=== PATIENT | female | born 1965 | race Caucasian/White ===

== ENCOUNTER 2020-08-19 15:56 | Emergency (ER) | payer SELFPAY ==
--- NOTE | 2020-08-19 | ECG_ITS ---
Test Reason : CP Blood Pressure : / mmHG Vent. Rate : 087 BPM Atrial Rate : 087 BPM P-R Int : 148 ms QRS Dur : 084 ms QT Int : 378 ms P-R-T Axes : 032 049 054 degrees QTc Int : 454 ms Normal sinus rhythm Normal ECG When compared with ECG of 22-JUL-2019 19:31, No significant change was found Referred By: Generic ED Physician Electronically Signed By:ASHLEY CONTE MD
[2020-08-19 16:19] VITALS: BP 155/85; PULSE 88; RESP 16; TEMP 37.1; O2SAT 99; BMI 24.2
--- NOTE | 2020-08-19 18:00 | XR_ITS ---
EXAMINATION: XR CHEST CLINICAL INFORMATION: Chest pain COMPARISON: Chest x-ray 07/22/2019 TECHNIQUE: Frontal portable view of the chest was obtained. 5:57 PM FINDINGS: No significant abnormality is noted involving the heart, lungs, mediastinum, bony thorax or soft tissues. XR/XR chest 1V IMPRESSION: Unremarkable examination.
[2020-08-19 18:34] VITALS: BP 104/56; PULSE 80; RESP 16; TEMP 36.6; O2SAT 98
[2020-08-19] MEDS: Acetaminophen 325 MG TABLET 975 MG PO (18:37)
[2020-08-19 18:38] LABS: MANUAL DIFF FLAG NO
[2020-08-19 18:42] LABS: Basophils Percent Auto 0.4 % (0-2); Eosinophils Absolute Auto 0.1 X10*3/uL (0.0-0.4); Eosinophils Percent Auto 1.6 % (0-4); Hematocrit 37.7 % (37-47); Hemoglobin 12.8 g/dl (12.0-16.0); Imm Gran Abs Auto 0.01 X10*3/uL (0.00-0.03); Imm Gran Pct Auto 0.2 % (0.0-0.4); Lymphocytes Absolute Auto 1.4 X10*3/uL (1.2-4.9); Lymphocytes Percent Auto 24.6 % (20-40); Mean Corpuscular Hemoglobin 30.8 pg (27.0-33.0); Mean Corpuscular Volume 90.6 fL (80-98); Mean Platelet Volume 9.3 fL (9.4-12.3); Monocytes Absolute Auto 0.5 X10*3/uL (0.1-1.2); Monocytes Percent Auto 8.1 % (2-11); Neutrophils Absolute Auto 3.7 X10*3/uL (2.0-8.3); Neutrophils Percent Auto 65.1 % (45-73); Platelet Count 254 X10*3/uL (160-400); Red Blood Count 4.16 X10*6/uL (4.20-5.50); Red Cell Distribution Width 12.6 % (11.0-16.0); White Blood Count 5.7 X10*3/uL (4.8-10.8)
[2020-08-19 18:44] LABS: Glucose Urine UA NEG (NEG); Leukocyte Esterase Urine NEG (NEG); Nitrite Urine NEG (NEG); Specific Gravity - Urine 1.025 (1.005-1.025); Urine Blood NEG (NEG); Urine Ketones NEG (NEG); Urine Protein NEG (NEG-TRACE)
[2020-08-19 18:45] LABS: Appearance Urine CLEAR; Color Urine YELLOW
[2020-08-19 18:49] LABS: INTERNATIONAL NORM RATIO 0.9 (0.9-1.1); Prothrombin Time 11.2 SEC (10.8-13.0)
[2020-08-19 18:53] LABS: D Dimer < 200 NG/ML
--- NOTE | 2020-08-19 18:53 | ED_ITS ---
HPI - General Adult General Chief complaint: General Medical Stated complaint: FLU LIKE SYMPTOMS Time Seen by Provider: 08/19/20 17:50 Source: patient Mode of arrival: ambulatory Limitations: no limitations History of Present Illness HPI narrative: 55yoF c No Sig PMHx presenting to the ED c c/o of Right sided neck pain/swelling ? lump x 3 weeks. She also reports in the last week she also has been having some mid-sternal chest pain. Reports it is better with laying down. Nothing makes the pain worse. Reports she would also like to be tested for COVID although denies any fevers, cough, sob, abd pain, N/V/D or any other symptoms. Related Data Allergies Allergy/AdvReac Type Severity Reaction Status Date / Time Penicillins [PCN] Allergy Unknown HIVES Verified 08/19/20 16:22 Review of Systems Review of Systems: Constitutional : No Fever, No Chills, No Night Sweats, No Fatigue, No Malaise ENT/Mouth : No Hearing loss, No Ear Pain, No Nasal Congestion, No Sinus Pain, No Hoarseness, No sore throat although pain in right side of neck, No Rhinorrhea, No Swallowing Difficulty Eyes: No Eye Pain, No Swelling, No Vision Changes Cardiovascular : + Chest pain, No SOB, no Dyspnea on Exertion, No Orthopnea, No Edema, No extremity swelling, No Palpitations Respiratory : No Cough, No Sputum, No Wheezing, No Dyspnea Gastrointestinal : No Nausea, No Vomiting, No Diarrhea, No abdominal Pain, No Hematochezia, No Melena Genitourinary : No irregular bleeding, No Dysuria, No Urinary Frequency, No Hematuria, No Urinary Incontinence, No Urgency, No Flank Pain, No Urinary Flow Changes, No Hesitancy Musculoskeletal : No joint pain, No Myalgias, No Joint Swelling Skin : No Skin Lesions, No rash Neuro : No Weakness, No Numbness, No Paresthesias, No Loss of Consciousness, No Dizziness, No Headache Psych : No Anxiety/Panic, No Depression, No SI/HI/AH/VH Heme/Lymph: No Bruising, No Bleeding,No Lymphadenopathy Endocrine : No Polyuria, No Polydipsia, No Temperature Intolerance Yes all other systems are reviewed and are negative [facility] Past Medical History Attestation statement: The following information was validated with the patient. Medical History Patient denies significant medical history Social History Social History Alcohol intake: never Smoked in Last 30 Days: No Use of substances other than those prescribed or required for medical reasons: No Advance Directives: No Advance Directives Information Provided: No Physical Exam Vital Signs: Vital Signs: Last Vital Signs Temp 97.7 F 08/19/20 21:08 Pulse 59 08/19/20 21:08 Resp 16 08/19/20 21:08 BP 125/73 08/19/20 21:08 Pulse Ox 98 08/19/20 21:08 Body Mass Index 24.2 vital signs have been reviewed as normal and appeared to be correct. Blood pressure normal. Heart rate normal. Respiration rate normal. Temperature normal. Oxygen saturation normal. Appearance: Alert. Oriented X3. No acute distress. Head: Normal external exam. Normocephalic. Atraumatic. No Reilly signs noted. No raccoon eyes noted Eyes: PERRLA. EOMI. Conjunctiva and sclera normal. Eyelids normal. ENT: Pharynx normal. Uvula midline. Moist mucous membranes. No trismus noted. No drooling noted. No muffled voice noted. Neck: Normal inspection. Neck supple. FROM. No adenopathy. Thyroid Normal. No meningeal signs. No neck mass noted. CVS: Normal heart rate and rhythm. Heart sound normal. No murmurs noted. Pulses normal throughout. Respiratory: No respiratory distress. Painless inspiration. Breath sounds normal. No wheezes/rales/rhonchi noted. Chest nontender. No accessory muscle usage noted or decreased air movement noted. Abdomen: Soft and nontender. Bowel sounds normal in all 4 quadrants. No distention noted. No organomegaly noted. No visible injury noted. Back: Full range of motion noted. Skin: Skin warm and dry. Normal skin color. Normal skin turgor. No rashes/lesions/lacerations noted. Extremities: No lower extremity edema. Extremities exhibit normal range of motion. Extremities nontender. Neuro: Oriented X 3. No motor deficit. No sensory deficit. Reflexes normal. Course Course Course Narrative: 18:30PM - 55yoF c No Sig PMHx presenting to the ED c c/o of Right sided neck pain/swelling ? lump x 3 weeks. She also reports in the last week she also has been having some mid-sternal chest pain. - Concern for Neck/thyroid mass/goiter vs ACS - Plan: Labs, CXR, EKG, CT scan of neck and re-evaluate. Reevaluation(s) Reevaluation #1: - Including D-dimer and TSH level. UA within normal limits no evidence of UTI. COVID/RSV/influenza negative. Chest x-ray obtained within normal limits no acute processes noted. EKG normal sinus rhythm no acute ischemic changes noted. - due to the patient reporting right sided neck swelling/pain/lump for the past [address] scan with contrast obtained to evaluate for possible abscesses or any other acute processes and revealed bilateral nonspecific adenopathy therefore I gave a copy of the results to the patient and she does not have a primary care provider therefore explained to her that she will need to follow-up with Dr. garrison the ENT which I will give her a referral to along with Oncology and that she needs to call them tomorrow and that they will most likely do a biopsy for further evaluation and treatment. Patient understands this does not have any additional complaints or concerns or questions. Time: 21:41 Medical Decision Making Medical Records Medical records reviewed: Yes I reviewed the patient's medical records. Lab Data Lab results reviewed: Yes I reviewed the patient's lab results. Result diagrams: 08/19/20 18:28 08/19/20 18:28 Labs: Lab Results 08/19/20 08/19/20 08/19/20 Range/Units 18:27 18:28 18:28 WBC 5.7 (4.8-10.8) X10*3/uL RBC 4.16 L (4.20-5.50) X10*6/uL Hgb 12.8 (12.0-16.0) g/dl Hct 37.7 (37-47) % MCV 90.6 (80-98) fL MCH 30.8 (27.0-33.0) pg MCHC 34.0 (31.0-35.0) g/dl RDW 12.6 (11.0-16.0) % Plt Count 254 (160-400) X10*3/uL MPV 9.3 L (9.4-12.3) fL Immature Gran % (Auto) 0.2 (0.0-0.4) % Neut % (Auto) 65.1 (45-73) % Lymph % (Auto) 24.6 (20-40) % Hardeman % (Auto) 8.1 (2-11) % Eos % (Auto) 1.6 (0-4) % Baso % (Auto) 0.4 (0-2) % Lymph # (Auto) 1.4 (1.2-4.9) X10*3/uL Hardeman # (Auto) 0.5 (0.1-1.2) X10*3/uL Eos # (Auto) 0.1 (0.0-0.4) X10*3/uL Baso # (Auto) 0.0 (0.0-0.2) X10*3/uL Abs Immat Gran (auto) 0.01 (0.00-0.03) X10*3/uL Absolute Neuts (auto) 3.7 (2.0-8.3) X10*3/uL Absolute Nucleated RBC 0.000 (0.0-0.012) X10*3/uL Nucleated RBC % (auto) 0.0 (0.0-0.2) /100WBC PT (10.8-13.0) SEC INR (0.9-1.1) D-Dimer NG/ML Sodium 140 (135-145) mmol/L Potassium 4.0 (3.3-5.1) mmol/l Chloride 105 (96-108) mmol/L Carbon Dioxide 26 (22-29) mmol/L Anion Gap 13 (12-20) BUN 20 H (9-16) mg/dL Creatinine 0.66 (0.5-1.4) mg/dL Estim Creat Clear Calc 90.1 Estimated GFR > 60 Random Glucose 111 (60-115) mg/dL Calcium 8.6 (8.4-10.2) mg/dL Magnesium 2.0 (1.6-2.6) mg/dL Total Bilirubin 0.3 (0.0-1.0) mg/dL Direct Bilirubin < 0.2 (0.0-0.5) mg/dL AST 26 (5-31) U/L ALT 20 (0-31) U/L Alkaline Phosphatase 64 (39-117) U/L Troponin I High Sens (<3.5-17.0) ng/L Total Protein 6.7 (6.5-8.0) g/dL Albumin 4.1 (3.5-5.0) g/dL TSH 1.61 (0.32-4.0) uIU/mL Urine Color Urine Appearance Urine pH (5.0-8.0) Ur Specific Sanford (1.005-1.025) Urine Protein (NEG-TRACE) MG/DL Urine Glucose (UA) (NEG) MG/DL Urine Ketones (NEG) MG/DL Urine Blood (NEG) Urine Nitrite (NEG) Ur Leukocyte Esterase (NEG) Coronavirus (PCR) (Negative) Influenza Type A (PCR) (Negative) Influenza Type B (PCR) (Negative) RSV RNA Qual (PCR) (Negative) 08/19/20 08/19/20 08/19/20 Range/Units 18:28 18:28 18:29 WBC (4.8-10.8) X10*3/uL RBC (4.20-5.50) X10*6/uL Hgb (12.0-16.0) g/dl Hct (37-47) % MCV (80-98) fL MCH (27.0-33.0) pg MCHC (31.0-35.0) g/dl RDW (11.0-16.0) % Plt Count (160-400) X10*3/uL MPV (9.4-12.3) fL Immature Gran % (Auto) (0.0-0.4) % Neut % (Auto) (45-73) % Lymph % (Auto) (20-40) % Hardeman % (Auto) (2-11) % Eos % (Auto) (0-4) % Baso % (Auto) (0-2) % Lymph # (Auto) (1.2-4.9) X10*3/uL Hardeman # (Auto) (0.1-1.2) X10*3/uL Eos # (Auto) (0.0-0.4) X10*3/uL Baso # (Auto) (0.0-0.2) X10*3/uL Abs Immat Gran (auto) (0.00-0.03) X10*3/uL Absolute Neuts (auto) (2.0-8.3) X10*3/uL Absolute Nucleated RBC (0.0-0.012) X10*3/uL Nucleated RBC % (auto) (0.0-0.2) /100WBC PT 11.2 (10.8-13.0) SEC INR 0.9 (0.9-1.1) D-Dimer < 200 NG/ML Sodium (135-145) mmol/L Potassium (3.3-5.1) mmol/l Chloride (96-108) mmol/L Carbon Dioxide (22-29) mmol/L Anion Gap (12-20) BUN (9-16) mg/dL Creatinine (0.5-1.4) mg/dL Estim Creat Clear Calc Estimated GFR Random Glucose (60-115) mg/dL Calcium (8.4-10.2) mg/dL Magnesium (1.6-2.6) mg/dL Total Bilirubin (0.0-1.0) mg/dL Direct Bilirubin (0.0-0.5) mg/dL AST (5-31) U/L ALT (0-31) U/L Alkaline Phosphatase (39-117) U/L Troponin I High Sens < 3.5 (<3.5-17.0) ng/L Total Protein (6.5-8.0) g/dL Albumin (3.5-5.0) g/dL TSH (0.32-4.0) uIU/mL Urine Color Urine Appearance Urine pH (5.0-8.0) Ur Specific Sanford (1.005-1.025) Urine Protein (NEG-TRACE) MG/DL Urine Glucose (UA) (NEG) MG/DL Urine Ketones (NEG) MG/DL Urine Blood (NEG) Urine Nitrite (NEG) Ur Leukocyte Esterase (NEG) Coronavirus (PCR) NEGATIVE (Negative) Influenza Type A (PCR) NEGATIVE (Negative) Influenza Type B (PCR) NEGATIVE (Negative) RSV RNA Qual (PCR) NEGATIVE (Negative) 08/19/20 Range/Units 18:37 WBC (4.8-10.8) X10*3/uL RBC (4.20-5.50) X10*6/uL Hgb (12.0-16.0) g/dl Hct (37-47) % MCV (80-98) fL MCH (27.0-33.0) pg MCHC (31.0-35.0) g/dl RDW (11.0-16.0) % Plt Count (160-400) X10*3/uL MPV (9.4-12.3) fL Immature Gran % (Auto) (0.0-0.4) % Neut % (Auto) (45-73) % Lymph % (Auto) (20-40) % Hardeman % (Auto) (2-11) % Eos % (Auto) (0-4) % Baso % (Auto) (0-2) % Lymph # (Auto) (1.2-4.9) X10*3/uL Hardeman # (Auto) (0.1-1.2) X10*3/uL Eos # (Auto) (0.0-0.4) X10*3/uL Baso # (Auto) (0.0-0.2) X10*3/uL Abs Immat Gran (auto) (0.00-0.03) X10*3/uL Absolute Neuts (auto) (2.0-8.3) X10*3/uL Absolute Nucleated RBC (0.0-0.012) X10*3/uL Nucleated RBC % (auto) (0.0-0.2) /100WBC PT (10.8-13.0) SEC INR (0.9-1.1) D-Dimer NG/ML Sodium (135-145) mmol/L Potassium (3.3-5.1) mmol/l Chloride (96-108) mmol/L Carbon Dioxide (22-29) mmol/L Anion Gap (12-20) BUN (9-16) mg/dL Creatinine (0.5-1.4) mg/dL Estim Creat Clear Calc Estimated GFR Random Glucose (60-115) mg/dL Calcium (8.4-10.2) mg/dL Magnesium (1.6-2.6) mg/dL Total Bilirubin (0.0-1.0) mg/dL Direct Bilirubin (0.0-0.5) mg/dL AST (5-31) U/L ALT (0-31) U/L Alkaline Phosphatase (39-117) U/L Troponin I High Sens (<3.5-17.0) ng/L Total Protein (6.5-8.0) g/dL Albumin (3.5-5.0) g/dL TSH (0.32-4.0) uIU/mL Urine Color YELLOW Urine Appearance CLEAR Urine pH 6.0 (5.0-8.0) Ur Specific Sanford 1.025 (1.005-1.025) Urine Protein NEG (NEG-TRACE) MG/DL Urine Glucose (UA) NEG (NEG) MG/DL Urine Ketones NEG (NEG) MG/DL Urine Blood NEG (NEG) Urine Nitrite NEG (NEG) Ur Leukocyte Esterase NEG (NEG) Coronavirus (PCR) (Negative) Influenza Type A (PCR) (Negative) Influenza Type B (PCR) (Negative) RSV RNA Qual (PCR) (Negative) Imaging Data Chest x-ray: Attestation: I personally reviewed and interpreted this imaging study as follows: Radiologist's impression: IMPRESSION: Unremarkable examination. soft tissue neck ct: Attestation: I personally reviewed and interpreted this imaging study as follows: Radiologist's impression: IMPRESSION: 1. Mildly prominent, nonspecific bilateral level Ib and IIa lymph nodes. Periapical disease associated with the remaining mandibular teeth. No demonstrated discrete drainable fluid collection. 2. 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 3. Moderate to advanced degenerative facet arthropathy on the right from C2-C6. ECG Data Attestation: I personally reviewed and interpreted this ECG as follows: Interpretation: Normal sinus rhythm with a ventricular rate of 87 with a normal NC interval normal QRS duration normal QT/QTC interval. No acute ischemic changes noted. Discharge Plan Discharge Clinical Impression: Adenopathy, Atypical chest pain Patient Disposition: Home, Self-Care Instructions: Lymphadenopathy (ED), Superficial Mass Needle Biopsy (ED), Adenitis (ED) Referrals: Álvaro Zaidi [Physician] - 2 days Geoff Bender MD [Physician] - 2 days Print Language: Croatian
[2020-08-19 19:06] LABS: Alanine Aminotransferase 20 U/L (0-31); Albumin Level 4.1 g/dL (3.5-5.0); Alkaline Phosphatase 64 U/L (39-117); Anion Gap 13 (12-20); Aspartate Amino Transferase 26 U/L (5-31); Bilirubin Direct < 0.2 mg/dL (0.0-0.5); Bilirubin Total 0.3 mg/dL (0.0-1.0); Blood Urea Nitrogen 20 mg/dL (9-16); Calcium 8.6 mg/dL (8.4-10.2); Carbon Dioxide 26 mmol/L (22-29); Chloride 105 mmol/L (96-108); Creatinine Clr Calc Pharmacy 90.1; Estimated Glomerular Filt Rate > 60; Glucose Random 111 mg/dL (60-115); Sodium 140 mmol/L (135-145); Total Protein 6.7 g/dL (6.5-8.0)
[2020-08-19 19:11] LABS: Troponin-I High Sensitivity < 3.5 ng/L (<3.5-17.0)
--- NOTE | 2020-08-19 19:11 | CT_ITS ---
EXAMINATION: CT SOFT TISSUE NECK WITH CONTRAST CLINICAL INFORMATION: Right-sided neck pain/swelling. Mass versus abscess. COMPARISON: CT neck from 07/22/2019. TECHNIQUE: Multidetector helical imaging was performed in the axial plane following the administration of 60 mL of Omnipaque 350 intravenous contrast. Multiple axial reformats and coronal/sagittal reconstructions were created the technologist workstation for review. This CT examination was performed using dose optimization techniques as appropriate, variously including the following: *Automated exposure control. *Adjustment of mA and/or kV according to patient size (this includes techniques or standardized protocols for targeted exams where dose is matched to indication/reason for exam; i.e. extremities or head). *Use of iterative reconstruction technique. DLP: 411 mGy-cm FINDINGS: Mildly prominent bilateral level Ib and IIa lymph nodes, measuring up to 1.6 cm in left level Ib and 1.2 cm in bilateral level IIa. Periapical lucencies associated with the remaining mandibular teeth. Changes of upper and lower prosthetic teeth. No demonstrated discrete drainable fluid collection. No focal soft tissue lesion or abnormal enhancement within the intrinsic tissues of the tongue or floor of mouth. Small palatine and lingular tonsilloliths. No discrete mass lesion or collection associated with the tonsils. Otherwise, no significant cutaneous thickening or subcutaneous inflammation. No discrete fluid collection within the deep tissues of the neck. The premaxillary, retromaxillary, pterygopalatine fossa, orbital apical, parapharyngeal, and prelaryngeal adipose tissue is maintained. Normal appearance of the parotid, submandibular, and thyroid glands. Scattered subcentimeter lymph nodes through the remaining cervical levels bilaterally, none of which are pathologically enlarged or abnormally enhancing. Normal mucosal contours of the pharynx and larynx without abnormal enhancement. Normal appearance of the hyoid bone, thyroid cartilage, or cartilaginous trachea. The airways remains widely patent. No radiopaque foreign bodies. The atlantooccipital and atlantoaxial articulations remain well aligned. Straightening of the normal cervical lordosis. No evidence of acute fracture or subluxation of the cervical spine. The vertebral body heights are maintained. Mild to moderate multilevel degenerative spondyloarthropathy of the cervical spine. Moderate degenerative disc disease at C5-C6 with disc-osteophyte formation. Moderate right-sided facet joint arthropathy from C2-C6. No evidence of epidural collection. There is no prevertebral soft tissue swelling. Normal opacification of the cervical arterial and venous structures. The visualized portion of the skull base is without significant abnormalities. Dehiscence of the cartilaginous nasal septum. Mild to moderate mucosal thickening of the paranasal sinuses. The mastoid air cells and middle ear cavities are clear. CT Upper Chest: The visualized lung apices and upper mediastinum are within normal limits. CT/CT soft tissue neck w con IMPRESSION: 1. Mildly prominent, nonspecific bilateral level Ib and IIa lymph nodes. Periapical disease associated with the remaining mandibular teeth. No demonstrated discrete drainable fluid collection. 2. 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 3. Moderate to advanced degenerative facet arthropathy on the right from C2-C6.
[2020-08-19 19:15] LABS: Influenza A PCR NEGATIVE (Negative); Influenza B PCR NEGATIVE (Negative); Resp Syncy Virus RNA Qual PCR NEGATIVE (Negative); SARS COV2 PCR INHOUSE NEGATIVE (Negative)
[2020-08-19 19:28] LABS: Thyroid Stimulating Hormone 1.61 uIU/mL (0.32-4.0)
[2020-08-19] MEDS: iohexoL 350 MG/ML 100 ML INFUS..BTL IV (20:17)
[2020-08-19 21:08] VITALS: BP 125/73; PULSE 59; RESP 16; TEMP 36.5; O2SAT 98
== END 2020-08-19 21:50 | disposition home or self-care (01) ==
PROVIDERS: Physician Assistant Medical; Emergency Provider Emergency Medicine Emergency Medical Services
DX: R22.1 Localized swelling, mass and lump, neck (principal); R07.89 Other chest pain; Z20.828 Contact with and (suspected) exposure to other viral communicable diseases
CPT/HCPCS: 0241U; 36415; 70491; 71045; 80048; 80076; 81003; 83735; 84443; 84484; 85025; 85379; 85610; 93005; 99284; Q9967

== ENCOUNTER 2020-09-23 15:54 | Emergency (ER) | payer SELFPAY ==
--- NOTE | 2020-09-23 | ECG_ITS ---
Test Reason : CHEST PAIN Blood Pressure : / mmHG Vent. Rate : 090 BPM Atrial Rate : 090 BPM P-R Int : 136 ms QRS Dur : 086 ms QT Int : 358 ms P-R-T Axes : 035 011 039 degrees QTc Int : 437 ms Normal sinus rhythm Normal ECG When compared with ECG of 19-AUG-2020 16:25, No significant change was found Referred By: Chris Solorio Electronically Signed By:Beto Lozoya
[2020-09-23 17:51] VITALS: BP 170/80; PULSE 75; RESP 18; TEMP 36.9; O2SAT 97; BMI 22.6
[2020-09-23 18:00] VITALS: BP 162/86; PULSE 79; RESP 14; TEMP 36.2; O2SAT 99
--- NOTE | 2020-09-23 18:00 | ED.URI ---
HPI - URI/Sore Throat General Chief Complaint: Upper Respiratory Symptoms Stated Complaint: chest pain Time Seen by Provider: 09/23/20 18:00 Source: patient Mode of arrival: ambulatory Limitations: no limitations History of Present Illness HPI Narrative: Patient exposed to her sister was positive at COVID about 10 days ago patient started having symptoms for last 5 days feel little short of breath dry cough no fever has malaise and headache also feeling loss of taste. MD elicited complaint: cough Onset (ago): week(s) (1) Severity: mild Related Data Home Medications Medication Instructions Recorded Confirmed No Known Home Meds 08/28/20 Allergies Allergy/AdvReac Type Severity Reaction Status Date / Time Penicillins [PCN] Allergy Unknown HIVES Verified 08/28/20 09:45 Review of Systems Review of Systems: Constitutional : No Weight loss, No Fever, No Chills, malaise+ ENT/Mouth : No sore throat, No Rhinorrhea Eyes: No Eye Pain, No Swelling Cardiovascular : No Chest Pain, no palpitations Respiratory : + Cough, No Sputum, + shortness of breath Gastrointestinal : no Nausea, No Vomiting, No Diarrhea, No abdominal Pain, no black stools Genitourinary : No Dysuria, No Urinary Frequency Musculoskeletal : No joint pain, No Myalgias, No Joint Swelling Skin : No Skin Lesions, No rash Neuro : No Weakness, No Numbness, No Dizziness, No Headache Psych : No Anxiety/Panic, No Depression Heme/Lymph: No Bruising, No Lymphadenopathy Endocrine : No Polyuria, No Polydipsia All other systems reviewed and are negative [facility] Past Medical History Medical History Patient denies significant medical history Polycystic ovarian disease Family History Family History Mother Brain aneurysm Father Small cell lung cancer Social History Social History Alcohol intake: never Advance Directives: No Advance Directives Information Provided: Yes Physical Exam Vital Signs: Vital Signs: Last Vital Signs Temp 97.1 F 09/23/20 18:00 Pulse 79 09/23/20 18:00 Resp 14 09/23/20 18:00 BP 162/86 H 09/23/20 18:00 Pulse Ox 99 09/23/20 18:00 Body Mass Index 22.6 Appearance: Alert. Oriented X3. No acute distress. Eyes: Pupils equal, round and reactive to light. ENT: Pharynx normal. Neck: Normal inspection. Neck supple. CVS: Normal heart rate and rhythm. Pulses normal. Respiratory: No respiratory distress. Breath sounds normal. Abdomen: Soft and nontender. Bowel sounds are present, no mass palpable, no CVA tenderness Skin: Skin warm and dry. Normal skin color. Normal skin turgor. Extremities: No lower extremity edema. Neuro: Oriented X 3. No motor deficit. No sensory deficit. MDM - URI/Sore Throat Lab Data Labs: Lab Results 09/23/20 Range/Units 19:01 COVID-19 (AJAY) Positive A (Negative) COVID-19 Clin Com See Note Discharge Plan Discharge Clinical Impression: COVID-19 Patient Disposition: Home, Self-Care Instructions: COVID-19 (Coronavirus Disease 2019) (ED) Additional Instructions: Social distancing as advised. Tylenol for pain/fever Report to the ER if increased shortness of breath Prescriptions: No Action No Known Home Meds RF: 0 Interventions: ED Discharge Assessment Last Done: 09/23/20 19:56 Discharge Date/Time: 09/23/20 19:56
--- NOTE | 2020-09-23 18:01 | XR_ITS ---
EXAMINATION: XR CHEST CLINICAL INFORMATION: Question COVID COMPARISON: 08/19/2020 TECHNIQUE: Frontal view of the chest was obtained. FINDINGS: Chronic coarse interstitial prominence again seen. No focal consolidation or mass. No pleural effusion or pneumothorax. Normal heart size. XR/XR chest 1V IMPRESSION: Chronic coarse interstitial prominence seen. This could reflect chronic bronchitis or reactive airways disease. No acute abnormality.
[2020-09-23 19:24] LABS: COVID-19 Test Positive (Negative)
== END 2020-09-23 19:56 | disposition home or self-care (01) ==
PROVIDERS: Emergency Provider Internal Medicine
DX: U07.1 COVID-19 (principal); R07.9 Chest pain, unspecified; R05 Cough
CPT/HCPCS: 36415; 71045; 87635; 93005; 99283

== ENCOUNTER 2021-02-06 21:06 | Emergency (ER) | payer MEDICAID, SELFPAY ==
--- NOTE | ~2021-02-06 | CT_ITS ---
EXAMINATION: CT ABDOMEN AND PELVIS WITH CONTRAST CLINICAL INFORMATION: Right lower quadrant pain COMPARISON: 02/28/2020 TECHNIQUE: Multidetector volumetric images were obtained from the superior aspect of the liver through the pubic symphysis following administration 85 mL of Omnipaque 350 intravenous contrast. Sagittal and coronal reformatted images were obtained on the technologist's workstation. Oral contrast: No This CT examination was performed using dose optimization techniques as appropriate, variously including the following: *Automated exposure control *Adjustment of mA and/or kV according to patient size (this includes techniques or standardized protocols for targeted exams where dose is matched to indication/reason for exam; i.e. extremities or head) *Use of iterative reconstruction technique DLP: 408 mGy-cm FINDINGS: LUNG BASES: The visualized lung bases are unremarkable. LIVER, GALLBLADDER, AND BILIARY TREE: The liver is normal in size, shape, and attenuation. No focal hepatic lesion or biliary ductal dilatation is present. The gallbladder is unremarkable with no evidence of radiopaque gallstones, gallbladder wall thickening, or obvious pericholecystic inflammatory changes. PANCREAS: Unremarkable. SPLEEN: Unremarkable. ADRENAL GLANDS: Unremarkable. KIDNEYS AND URETERS: The kidneys are normal in size, shape, and attenuation. 1.7 cm left mid renal cyst is noted. No hydronephrosis, hydroureter, or obstructing calculi seen. No perinephric stranding. BLADDER: Unremarkable. GASTROINTESTINAL TRACT: The small and large bowel are unremarkable. The appendix is unremarkable. No free fluid or free air is seen. ABDOMINAL WALL: No significant hernia is appreciated. LYMPH NODES: Normal. VASCULAR: Scattered atherosclerotic calcifications noted. PELVIC VISCERA: Unremarkable. OSSEOUS STRUCTURES: There is degenerative change at L4-L5 and L5-S1. CT/CT abdomen pelvis w con IMPRESSION: No acute findings identified in the abdomen/pelvis.
[2021-02-06 21:57] VITALS: BP 166/85; PULSE 78; RESP 16; TEMP 36.9; O2SAT 97; BMI 21.9
--- NOTE | 2021-02-06 22:11 | PC.NURSE ---
UA obtained and sent.
[2021-02-06 22:17] LABS: Glucose Urine UA NEG (NEG); Leukocyte Esterase Urine NEG (NEG); Nitrite Urine NEG (NEG); Specific Gravity - Urine <= 1.005 (1.005-1.025); Urine Blood NEG (NEG); Urine Ketones 5 MG/DL (NEG); Urine Protein NEG (NEG-TRACE)
[2021-02-06 22:19] LABS: Appearance Urine CLEAR; Color Urine YELLOW
--- NOTE | 2021-02-07 01:08 | ED.ABDPAIN ---
HPI - Abdominal Pain General Chief Complaint: Abdominal Pain Stated Complaint: Flank pain Time Seen by Provider: 02/07/21 01:08 Source: patient Mode of arrival: ambulatory Limitations: no limitations History of Present Illness MD elicited complaint: abdominal pain Pertinent past history: kidney stones Onset (ago): day(s) (3 ) Pain Consistency: constant Location: RLQ Severity: moderate Quality: aching Radiation: R flank Migration to: suprapubic Exacerbating factors: nothing Relieving factors: nothing Associated symptoms: nausea, vomiting and anorexia Related Data Home Medications Medication Instructions Recorded Confirmed No Known Home Meds 08/28/20 Allergies Allergy/AdvReac Type Severity Reaction Status Date / Time Penicillins [PCN] Allergy Unknown HIVES Verified 02/06/21 22:03 Review of Systems Review of Systems Constitutional : No Weight loss, No Fever, No Chills, pos anorexia ENT/Mouth : No sore throat, No Rhinorrhea Eyes: No Swelling, No Redness Cardiovascular : No Chest Pain, No SOB, NoEdema Respiratory : No Cough, No Sputum, No Wheezing Gastrointestinal : Positive Nausea, Positive Vomiting, no Diarrhea, positive abdominal Pain, No Hematochezia, No Melena Genitourinary : No Dysuria, No Urinary Frequency, No Hematuria, No Urgency Musculoskeletal : No joint pain, No Myalgias, No Joint Swelling Skin : No Skin Lesions, No rash Neuro : No Weakness, No Numbness, No Dizziness, No Headache Psych : No Anxiety/Panic, No Depression Heme/Lymph: No Bruising, No Lymphadenopathy Endocrine : No Polyuria, No Polydipsia All other systems reviewed and are negative. Physical Exam Vital Signs: Vital Signs: Last Vital Signs Temp 98.1 F 02/07/21 01:21 Pulse 76 02/07/21 01:21 Resp 18 02/07/21 01:21 BP 167/86 H 02/07/21 01:21 Pulse Ox 98 02/07/21 01:21 Body Mass Index 21.9 Appearance: Alert. Oriented X3. No acute distress. Eyes: Pupils equal, round and reactive to light. ENT: Pharynx normal. Neck: Normal inspection. Neck supple. CVS: Normal heart rate and rhythm. Pulses normal. Respiratory: No respiratory distress. Breath sounds normal. Abdomen: Soft and moderate R sided ttp no rebound or guarding, + Rovsing's sign Skin: Skin warm and dry. Normal skin color. Normal skin turgor. Extremities: No lower extremity edema. No calf ttp Neuro: Oriented X 3. No motor deficit. No sensory deficit. Course Course Course Narrative: signed out pending CT scan to Dr. [facility] - Abdominal Pain MDM Narrative Medical decision making narrative: 55 yo female here with 3 days of worsening RLQ pain and some pressure with urination, at this time labs, IV morphine for pain, IV toradol for pain, CT Scan for renal colic, mass, appendicitis, dispo per results and findings. Lab Data Result diagrams: 02/07/21 01:41 02/07/21 01:41 Labs: Lab Results 02/06/21 02/07/21 02/07/21 Range/Units 22:09 01:41 01:41 WBC 7.5 (4.8-10.8) X10*3/uL RBC 4.81 (4.20-5.50) X10*6/uL Hgb 14.5 (12.0-16.0) g/dl Hct 43.1 (37-47) % MCV 89.6 (80-98) fL MCH 30.1 (27.0-33.0) pg MCHC 33.6 (31.0-35.0) g/dl RDW 12.4 (11.0-16.0) % Plt Count 287 (160-400) X10*3/uL MPV 9.1 L (9.4-12.3) fL Immature Gran % (Auto) 0.3 (0.0-0.4) % Neut % (Auto) 70.3 (45-73) % Lymph % (Auto) 22.3 (20-40) % [place] % (Auto) 6.4 (2-11) % Eos % (Auto) 0.3 (0-4) % Baso % (Auto) 0.4 (0-2) % Lymph # (Auto) 1.7 (1.2-4.9) X10*3/uL [place] # (Auto) 0.5 (0.1-1.2) X10*3/uL Eos # (Auto) 0.0 (0.0-0.4) X10*3/uL Baso # (Auto) 0.0 (0.0-0.2) X10*3/uL Abs Immat Gran (auto) 0.02 (0.00-0.03) X10*3/uL Absolute Neuts (auto) 5.3 (2.0-8.3) X10*3/uL Absolute Nucleated RBC 0.000 (0.0-0.012) X10*3/uL Nucleated RBC % (auto) 0.0 (0.0-0.2) /100WBC PT 11.7 (10.8-13.0) SEC INR 1.0 (0.9-1.1) APTT 36.3 (24.1-38.0) SEC Sodium (135-145) mmol/L Potassium (3.3-5.1) mmol/L Chloride (96-108) mmol/L Carbon Dioxide (22-29) mmol/L Anion Gap (12-20) BUN (9-16) mg/dL Creatinine (0.5-1.4) mg/dL Estim Creat Clear Calc Estimated GFR Random Glucose (60-115) mg/dL Calcium (8.4-10.2) mg/dL Magnesium (1.6-2.6) mg/dL Total Bilirubin (0.0-1.0) mg/dL Direct Bilirubin (0.0-0.5) mg/dL AST (5-31) U/L ALT (0-31) U/L Alkaline Phosphatase (39-117) U/L Total Protein (6.5-8.0) g/dL Albumin (3.5-5.0) g/dL Lipase (8-78) U/L Urine Color YELLOW Urine Appearance CLEAR Urine pH 6.0 (5.0-8.0) Ur Specific [place] <= 1.005 (1.005-1.025) Urine Protein NEG (NEG-TRACE) MG/DL Urine Glucose (UA) NEG (NEG) MG/DL Urine Ketones 5 (NEG) MG/DL Urine Blood NEG (NEG) Urine Nitrite NEG (NEG) Ur Leukocyte Esterase NEG (NEG) COVID-19 (AJAY) (Negative) COVID-19 Clin Com 02/07/21 02/07/21 Range/Units 01:41 01:41 WBC (4.8-10.8) X10*3/uL RBC (4.20-5.50) X10*6/uL Hgb (12.0-16.0) g/dl Hct (37-47) % MCV (80-98) fL MCH (27.0-33.0) pg MCHC (31.0-35.0) g/dl RDW (11.0-16.0) % Plt Count (160-400) X10*3/uL MPV (9.4-12.3) fL Immature Gran % (Auto) (0.0-0.4) % Neut % (Auto) (45-73) % Lymph % (Auto) (20-40) % [place] % (Auto) (2-11) % Eos % (Auto) (0-4) % Baso % (Auto) (0-2) % Lymph # (Auto) (1.2-4.9) X10*3/uL [place] # (Auto) (0.1-1.2) X10*3/uL Eos # (Auto) (0.0-0.4) X10*3/uL Baso # (Auto) (0.0-0.2) X10*3/uL Abs Immat Gran (auto) (0.00-0.03) X10*3/uL Absolute Neuts (auto) (2.0-8.3) X10*3/uL Absolute Nucleated RBC (0.0-0.012) X10*3/uL Nucleated RBC % (auto) (0.0-0.2) /100WBC PT (10.8-13.0) SEC INR (0.9-1.1) APTT (24.1-38.0) SEC Sodium 137 (135-145) mmol/L Potassium 4.2 (3.3-5.1) mmol/L Chloride 98 (96-108) mmol/L Carbon Dioxide 28 (22-29) mmol/L Anion Gap 15 (12-20) BUN 7 L D (9-16) mg/dL Creatinine 0.68 (0.5-1.4) mg/dL Estim Creat Clear Calc 87.5 Estimated GFR > 60 Random Glucose 96 (60-115) mg/dL Calcium 10.3 H D (8.4-10.2) mg/dL Magnesium 1.9 (1.6-2.6) mg/dL Total Bilirubin 0.7 (0.0-1.0) mg/dL Direct Bilirubin 0.3 (0.0-0.5) mg/dL AST 22 (5-31) U/L ALT 17 (0-31) U/L Alkaline Phosphatase 70 (39-117) U/L Total Protein 8.2 H D (6.5-8.0) g/dL Albumin 5.0 D (3.5-5.0) g/dL Lipase 30 (8-78) U/L Urine Color Urine Appearance Urine pH (5.0-8.0) Ur Specific [place] (1.005-1.025) Urine Protein (NEG-TRACE) MG/DL Urine Glucose (UA) (NEG) MG/DL Urine Ketones (NEG) MG/DL Urine Blood (NEG) Urine Nitrite (NEG) Ur Leukocyte Esterase (NEG) COVID-19 (AJAY) Negative (Negative) COVID-19 Clin Com See Note Discharge Plan Discharge Clinical Impression: Abdominal pain Qualifiers: Abdominal location: right lower quadrant Qualified Code(s): R10.31 - Right lower quadrant pain Prescriptions: No Action No Known Home Meds RF: 0 PMFSH Past Medical History Attestation statement: The following information was validated with the patient. Medical History Kidney stone Patient denies significant medical history Polycystic ovarian disease Family History Family History Mother Brain aneurysm Father Small cell lung cancer Social History Social History (Updated 02/07/21 @ 01:08 by Yodit Omalley DO) Alcohol intake: never Smoking Status: Never smoker Use of substances other than those prescribed or required for medical reasons: Yes Substance Use Type: Marijuana Advance Directives: No Advance Directives Information Provided: No Patient : No
[2021-02-07 01:21] VITALS: BP 167/86; PULSE 76; RESP 18; TEMP 36.7; O2SAT 98
[2021-02-07 01:49] LABS: MANUAL DIFF FLAG NO
[2021-02-07] MEDS: Ketorolac Tromethamine 30 MG/ML VIAL IVPUSH (01:52)
[2021-02-07] MEDS: Morphine Sulfate 4 MG/ML CARTRIDGE IVPUSH (01:52)
[2021-02-07] MEDS: 0.9 % Sodium Chloride 1,000 ML 999 ML IVCONT (01:53)
[2021-02-07 01:54] LABS: Basophils Percent Auto 0.4 % (0-2); Eosinophils Percent Auto 0.3 % (0-4); Hematocrit 43.1 % (37-47); Hemoglobin 14.5 g/dl (12.0-16.0); Imm Gran Abs Auto 0.02 X10*3/uL (0.00-0.03); Imm Gran Pct Auto 0.3 % (0.0-0.4); Lymphocytes Absolute Auto 1.7 X10*3/uL (1.2-4.9); Lymphocytes Percent Auto 22.3 % (20-40); Mean Corpuscular HGB Conc 33.6 g/dl (31.0-35.0); Mean Corpuscular Hemoglobin 30.1 pg (27.0-33.0); Mean Corpuscular Volume 89.6 fL (80-98); Mean Platelet Volume 9.1 fL (9.4-12.3); Monocytes Absolute Auto 0.5 X10*3/uL (0.1-1.2); Monocytes Percent Auto 6.4 % (2-11); Neutrophils Absolute Auto 5.3 X10*3/uL (2.0-8.3); Neutrophils Percent Auto 70.3 % (45-73); Platelet Count 287 X10*3/uL (160-400); Red Blood Count 4.81 X10*6/uL (4.20-5.50); Red Cell Distribution Width 12.4 % (11.0-16.0); White Blood Count 7.5 X10*3/uL (4.8-10.8)
[2021-02-07 02:04] LABS: Prothrombin Time 11.7 SEC (10.8-13.0)
[2021-02-07 02:07] LABS: COVID-19 Test Negative (Negative); Partial Thromboplastin Time 36.3 SEC (24.1-38.0)
[2021-02-07 02:13] LABS: Alanine Aminotransferase 17 U/L (0-31); Alkaline Phosphatase 70 U/L (39-117); Anion Gap 15 (12-20); Aspartate Amino Transferase 22 U/L (5-31); Bilirubin Direct 0.3 mg/dL (0.0-0.5); Bilirubin Total 0.7 mg/dL (0.0-1.0); Blood Urea Nitrogen 7 mg/dL (9-16); Calcium 10.3 mg/dL (8.4-10.2); Carbon Dioxide 28 mmol/L (22-29); Chloride 98 mmol/L (96-108); Creatinine Clr Calc Pharmacy 87.5; Estimated Glomerular Filt Rate > 60; Glucose Random 96 mg/dL (60-115); Lipase 30 U/L (8-78); Magnesium 1.9 mg/dL (1.6-2.6); Potassium 4.2 mmol/L (3.3-5.1); Sodium 137 mmol/L (135-145); Total Protein 8.2 g/dL (6.5-8.0)
[2021-02-07] MEDS: iohexoL 350 MG/ML 100 ML INFUS..BTL 85 ML IV (02:50)
[2021-02-07] MEDS: Cyclobenzaprine HCl 5 MG TABLET PO (04:10)
[2021-02-07] MEDS: Lidocaine 4 % Patch ADH..PATCH 1 PATCH TRANSDERMA (04:10)
[2021-02-07] MEDS: Acetaminophen 325 MG TABLET 975 MG PO (04:11)
== END 2021-02-07 04:25 | disposition home or self-care (01) ==
PROVIDERS: Emergency Provider Emergency Medicine; PCP Hospitalist
DX: R10.31 Right lower quadrant pain (principal); F12.90 Cannabis use, unspecified, uncomplicated; Z20.822 Contact with and (suspected) exposure to COVID-19
CPT/HCPCS: 36415; 74177; 80048; 80076; 81003; 83690; 83735; 85025; 85610; 85730; 87635; 96361; 96365; 96375; 99284; J1885; J2270; Q9967

== ENCOUNTER 2021-11-02 10:11 | Emergency (ER) | payer MEDICAID, SELFPAY ==
--- NOTE | ~2021-11-02 | XR_ITS ---
EXAMINATION: XR CHEST CLINICAL INFORMATION: Chest pain COMPARISON: Previous chest x-ray September 2020 TECHNIQUE: 2 views of the chest were obtained. FINDINGS: No significant abnormality is noted involving the heart, lungs, mediastinum, bony thorax or soft tissues. XR/XR chest 2V IMPRESSION: Unremarkable examination.
--- NOTE | 2021-11-02 10:18 | ECG_ITS ---
Test Reason : CP Blood Pressure : / mmHG Vent. Rate : 078 BPM Atrial Rate : 078 BPM P-R Int : 126 ms QRS Dur : 082 ms QT Int : 370 ms P-R-T Axes : 017 041 049 degrees QTc Int : 421 ms Normal sinus rhythm Normal ECG When compared with ECG of 23-SEP-2020 15:58, No significant change was found Referred By: Generic ED Physician Electronically Signed By:ASHLEY CONTE MD
[2021-11-02 10:27] VITALS: BP 163/87; PULSE 83; RESP 18; TEMP 36.8; O2SAT 97; BMI 22.6
[2021-11-02 11:27] VITALS: BP 173/93; PULSE 88; RESP 18; TEMP 36.9; O2SAT 100
[2021-11-02 11:55] LABS: MANUAL DIFF FLAG NO
[2021-11-02 11:57] LABS: Basophils Percent Auto 0.3 % (0-2); Eosinophils Percent Auto 0.2 % (0-4); Hematocrit 40.2 % (37.0-47.0); Hemoglobin 13.5 g/dl (12.0-16.0); Imm Gran Abs Auto 0.02 X10*3/uL (0.00-0.03); Imm Gran Pct Auto 0.3 % (0.0-0.4); Lymphocytes Absolute Auto 0.9 X10*3/uL (1.2-4.9); Lymphocytes Percent Auto 15.3 % (20-40); Mean Corpuscular HGB Conc 33.6 g/dl (31.0-35.0); Mean Corpuscular Hemoglobin 30.4 pg (27.0-33.0); Mean Corpuscular Volume 90.5 fL (80.0-98.0); Mean Platelet Volume 8.9 fL (9.4-12.3); Monocytes Absolute Auto 0.4 X10*3/uL (0.1-1.2); Monocytes Percent Auto 5.8 % (2-11); Neutrophils Absolute Auto 4.8 x10*3/uL (2.0-8.3); Neutrophils Percent Auto 78.1 % (45-73); Platelet Count 249 X10*3/uL (160-400); Red Blood Count 4.44 X10*6/uL (4.20-5.50); Red Cell Distribution Width 12.9 % (11.0-16.0); White Blood Count 6.2 X10*3/uL (4.8-10.8)
[2021-11-02 12:06] LABS: D Dimer High Sensitivity < 150 NG/ML
--- NOTE | 2021-11-02 12:10 | ED.CHESTPAIN ---
HPI - Chest Pain General Chief Complaint: Chest Pain Stated Complaint: Burning in chest/neck Time Seen by Provider: 11/02/21 11:39 Source: patient and family Mode of arrival: ambulatory Limitations: no limitations History of Present Illness HPI narrative: 56-year-old female previously healthy here with complaint of 1 week of feeling like she has burning in her chest which radiates from her bilateral armpits to her neck into her back that is constant in nature. Patient tells me the pain is constant but does have varying levels of severity. She is unable to tell me what makes the pain worse. She denies any associated nausea, vomiting, abdominal pain, dizziness, diaphoresis, fevers, chills, cough or shortness of breath. No recent travel or sick contact No family history of coronary artery disease or blood clots Related Data Previous Rx's Medication Instructions Recorded lorazepam 1 mg tablet 1 mg PO DAILY PRN #8 tab 11/02/21 Allergies Allergy/AdvReac Type Severity Reaction Status Date / Time Penicillins [PCN] Allergy Unknown HIVES Verified 11/02/21 10:26 Review of Systems Review of Systems: Yes all other systems are reviewed and are negative Constitutional: Constitutional: Reports no additional constitutional complaints, Denies body ache(s), Denies chills, Denies fever(s), Denies headache(s) and Denies weakness Eyes: Eyes: Reports no additional eye complaints and Denies change in vision ENT: Reports system reviewed and no additional complaints, except as documented, Denies dizziness, Denies headache(s), Denies nasal congestion, Denies nasal discharge and Denies neck pain Cardiovascular: Cardiovascular: Reports no additional cardiovascular complaints, Reports chest pain, Denies leg edema and Denies dyspnea Respiratory: Respiratory: Reports no additional respiratory complaints, Denies cough and Denies dyspnea Gastrointestinal: Gastrointestinal: Reports no additional gastrointestinal complaints, Denies abdominal pain, Denies diarrhea, Denies nausea and Denies vomiting Genitourinary: Genitourinary: Reports no additional female genitourinary complaints and Denies urinary incontinence Musculoskeletal: Musculoskeletal: Reports no additional musculoskeletal complaints, Denies back pain, Denies arthralgias, Denies joint swelling, Denies neck pain, Denies numbness and Denies tingling Integumentary/Breasts: Skin/Breast: Reports system reviewed and no additional complaints, except as docu and Denies rash Neurologic: Reports system reviewed and no additional complaints, except as documented, Denies Abnormal speech present, Denies dizziness, Denies headache(s), Denies numbness, Denies tingling and Denies weakness PMFSH Past Medical History Attestation statement: The following information was validated with the patient. Source: old records reviewed and nursing notes reviewed Medical History COVID Kidney stone Patient denies significant medical history Polycystic ovarian disease Family History Family History Mother Brain aneurysm Father Small cell lung cancer Social History Social History Alcohol intake: never Substance Use Type: Marijuana Advance Directives: No Advance Directives Information Provided: Yes Physical Exam Vital Signs: Vital Signs: Last Vital Signs Temp 98.4 F 11/02/21 12:22 Pulse 68 11/02/21 12:22 Resp 12 11/02/21 12:22 BP 143/74 H 11/02/21 12:22 Pulse Ox 95 11/02/21 12:22 BMI result Body Mass Index 22.6 Const: General: cooperative, healthy appearing, comfortable and no acute distress Orientation/consciousness: patient oriented x3 Limitations: no limitations HENMT: Head: Yes normal to inspection Ears: hearing grossly normal bilaterally and TM's normal bilaterally General nose exam: Normal external nose present Face and sinus: Yes normal facial exam Mouth: Normal oral and palatal mucosa present Throat: Yes posterior oropharynx normal, Yes tonsils normal and Yes uvula midline Eyes: General: appearance normal, both eyes and all related structures Pupils: Equal, round and reactive pupils present Neck: Neck: Yes normal visual inspection, Yes full ROM and Yes no lymphadenopathy Chest: Chest palpation & inspection: normal inspection of the chest Resp: Effort & Inspection: normal respiratory effort Auscultation: clear to auscultation bilaterally Cardio: Rate: regular rate Rhythm: regular rhythm Peripheral pulses: Peripheral pulses 2+ throughout GI: Inspection: Yes normal to inspection Palpation (GI): Soft to palpation and nontender Auscultation: normal bowel sounds Back/Spine/Pelvis: Thoracic/Lumbar Spine: thoracic and lumbar spine normal to inspection Skin: General skin exam: no rashes or lesions noted Neuro: General: patient oriented x3, no focal motor deficits and normal sensation to monofilament Cranial nerves: Yes Equal, round and reactive pupils present Cognition (Neuro): normal cognition Speech: No Abnormal speech present Gait exam (Neuro): Normal gait present Motor exam (neuro): 5/5 motor strength present throughout Extrem: General: Yes normal to inspection, Yes no pedal edema and Yes no calf tenderness Course Course Course Narrative: 56-year-old female here with reports of 1 week of constant chest burning with radiation to the back and feeling like this under her armpits with no other associated symptoms. Patient has no reports of abdominal pain. Abdomen is soft and nontender. Her vitals are unremarkable with the exception of some mild hypertension. The patient tells me this happens to her sometimes when she is seeing the doctor. She tells me she has no history of high blood pressure normally it improves when she is outside of a clinical setting. Patient denies any recent travel, recent sick contact, recent stressors. Will check labs, EKG, chest x-ray, COVID screen 1300-labs including troponin are unremarkable. EKG, chest x-ray and COVID screen are negative. Chest pain is atypical for ACS, non exertional. ?Gerd vs anxiety vs esophageal spasm. This was discussed with patient. At this time I recommend she follow up outpatient with her primary care doctor. We did discuss trialing a PPI. I will also give her a small supply of lorazepam which she wishes to try at home. I offered a dose here which she declined. Reviewed worrisome signs and symptoms of when to return to the emergency department. Comfortable discharge home. MDM - Chest Pain MDM Narrative Medical decision making narrative: ACS-less likely with the normal EKG and flat troponin with symptoms greater than 1 week that are atypical in nature PE-less likely with negative d dimer, no hypoxia, tachypnea or clinical findings concerning for DVT Less likely aortic dissection with gradual symptoms over the last 1 week and no sudden onset pneumonia, anxiety Medical Records Data Attestation: I reviewed the patient's medical records. Lab Data Attestation: I reviewed the patient's lab results. Result diagrams: 11/02/21 11:49 11/02/21 11:50 Labs: Lab Results 11/02/21 11/02/21 11/02/21 Range/Units 11:47 11:49 11:50 WBC 6.2 (4.8-10.8) X10*3/uL RBC 4.44 (4.20-5.50) X10*6/uL Hgb 13.5 (12.0-16.0) g/dl Hct 40.2 (37.0-47.0) % MCV 90.5 (80.0-98.0) fL MCH 30.4 (27.0-33.0) pg MCHC 33.6 (31.0-35.0) g/dl RDW 12.9 (11.0-16.0) % Plt Count 249 (160-400) X10*3/uL MPV 8.9 L (9.4-12.3) fL Immature Gran % (Auto) 0.3 (0.0-0.4) % Neut % (Auto) 78.1 H (45-73) % Lymph % (Auto) 15.3 L (20-40) % [place] % (Auto) 5.8 (2-11) % Eos % (Auto) 0.2 (0-4) % Baso % (Auto) 0.3 (0-2) % Lymph # (Auto) 0.9 L (1.2-4.9) X10*3/uL [place] # (Auto) 0.4 (0.1-1.2) X10*3/uL Eos # (Auto) 0.0 (0.0-0.4) X10*3/uL Baso # (Auto) 0.0 (0.0-0.2) X10*3/uL Abs Immat Gran (auto) 0.02 (0.00-0.03) X10*3/uL Absolute Neuts (auto) 4.8 (2.0-8.3) x10*3/uL Absolute Nucleated RBC 0.000 (0.0-0.012) X10*3/uL Nucleated RBC % (auto) 0.0 (0.0-0.2) /100WBC PT 11.0 (9.9-13.0) SEC INR 1.0 (0.9-1.1) D-Dimer High Sensitivty < 150 NG/ML Sodium (135-145) mmol/L Potassium (3.3-5.1) mmol/L Chloride (96-108) mmol/L Carbon Dioxide (22-29) mmol/L Anion Gap (12-20) BUN (9-16) mg/dL Creatinine (0.5-1.4) mg/dL Estim Creat Clear Calc Estimated GFR Random Glucose (60-115) mg/dL Calcium (8.4-10.2) mg/dL Magnesium (1.6-2.6) mg/dL Total Bilirubin (0.0-1.0) mg/dL Direct Bilirubin (0.0-0.5) mg/dL AST (5-31) U/L ALT (0-31) U/L Alkaline Phosphatase (39-117) U/L Troponin I High Sens (<3.5-17.0) ng/L Total Protein (6.5-8.0) g/dL Albumin (3.5-5.0) g/dL COVID-19 (AJAY) Negative (Negative) COVID-19 Clin Com See Note 11/02/21 11/02/21 Range/Units 11:50 11:50 WBC (4.8-10.8) X10*3/uL RBC (4.20-5.50) X10*6/uL Hgb (12.0-16.0) g/dl Hct (37.0-47.0) % MCV (80.0-98.0) fL MCH (27.0-33.0) pg MCHC (31.0-35.0) g/dl RDW (11.0-16.0) % Plt Count (160-400) X10*3/uL MPV (9.4-12.3) fL Immature Gran % (Auto) (0.0-0.4) % Neut % (Auto) (45-73) % Lymph % (Auto) (20-40) % [place] % (Auto) (2-11) % Eos % (Auto) (0-4) % Baso % (Auto) (0-2) % Lymph # (Auto) (1.2-4.9) X10*3/uL [place] # (Auto) (0.1-1.2) X10*3/uL Eos # (Auto) (0.0-0.4) X10*3/uL Baso # (Auto) (0.0-0.2) X10*3/uL Abs Immat Gran (auto) (0.00-0.03) X10*3/uL Absolute Neuts (auto) (2.0-8.3) x10*3/uL Absolute Nucleated RBC (0.0-0.012) X10*3/uL Nucleated RBC % (auto) (0.0-0.2) /100WBC PT (9.9-13.0) SEC INR (0.9-1.1) D-Dimer High Sensitivty NG/ML Sodium 137 (135-145) mmol/L Potassium 4.6 (3.3-5.1) mmol/L Chloride 104 (96-108) mmol/L Carbon Dioxide 25 (22-29) mmol/L Anion Gap 13 (12-20) BUN 17 H (9-16) mg/dL Creatinine 0.64 (0.5-1.4) mg/dL Estim Creat Clear Calc 91.8 Estimated GFR > 60 Random Glucose 113 (60-115) mg/dL Calcium 9.7 (8.4-10.2) mg/dL Magnesium 1.8 (1.6-2.6) mg/dL Total Bilirubin 0.8 (0.0-1.0) mg/dL Direct Bilirubin 0.3 (0.0-0.5) mg/dL AST 28 (5-31) U/L ALT 21 (0-31) U/L Alkaline Phosphatase 62 (39-117) U/L Troponin I High Sens < 3.5 (<3.5-17.0) ng/L Total Protein 7.5 (6.5-8.0) g/dL Albumin 4.5 (3.5-5.0) g/dL COVID-19 (AJAY) (Negative) COVID-19 Clin Com Imaging Data Chest x-ray: Attestation: I personally reviewed and interpreted this imaging study as follows: Radiologist's impression: EXAMINATION: XR CHEST CLINICAL INFORMATION: Chest pain COMPARISON: Previous chest x-ray September 2020 TECHNIQUE: 2 views of the chest were obtained. FINDINGS: No significant abnormality is noted involving the heart, lungs, mediastinum, bony thorax or soft tissues. XR/XR chest 2V IMPRESSION: Unremarkable examination. ECG Data ECG #1: Attestation: I personally reviewed and interpreted this ECG as follows: ECG interpretation date: 11/02/21 ECG interpretation time: 10:23 Interpretation: Normal sinus rhythm with a rate of 78, normal [place], normal QRS, normal QT Discharge Plan Discharge Clinical Impression: Atypical chest pain Patient Disposition: Home, Self-Care Instructions: Chest Pain (ED) Additional Instructions: Your blood work, EKG, chest x-ray and COVID tests all look normal Consider starting Prilosec 10 take this daily Prescriptions: New lorazepam 1 mg tablet 1 mg PO DAILY PRN (Reason: anxiety) Qty: 8 0RF Interventions: ED Discharge Assessment Last Done: 11/02/21 13:02 Discharge Date/Time: 11/02/21 13:03
[2021-11-02 12:15] LABS: COVID-19 Test Negative (Negative)
[2021-11-02 12:16] LABS: Troponin-I High Sensitivity < 3.5 ng/L (<3.5-17.0)
[2021-11-02 12:22] VITALS: BP 143/74; PULSE 68; RESP 12; TEMP 36.9; O2SAT 95
[2021-11-02 12:24] LABS: Alanine Aminotransferase 21 U/L (0-31); Albumin Level 4.5 g/dL (3.5-5.0); Alkaline Phosphatase 62 U/L (39-117); Anion Gap 13 (12-20); Aspartate Amino Transferase 28 U/L (5-31); Bilirubin Direct 0.3 mg/dL (0.0-0.5); Bilirubin Total 0.8 mg/dL (0.0-1.0); Blood Urea Nitrogen 17 mg/dL (9-16); Calcium 9.7 mg/dL (8.4-10.2); Carbon Dioxide 25 mmol/L (22-29); Chloride 104 mmol/L (96-108); Creatinine Clr Calc Pharmacy 91.8; Estimated Glomerular Filt Rate > 60; Glucose Random 113 mg/dL (60-115); Magnesium 1.8 mg/dL (1.6-2.6); Potassium 4.6 mmol/L (3.3-5.1); Sodium 137 mmol/L (135-145); Total Protein 7.5 g/dL (6.5-8.0)
== END 2021-11-02 13:03 | disposition home or self-care (01) ==
PROVIDERS: Nurse Practitioner Family; Emergency Provider Emergency Medicine
DX: R07.89 Other chest pain (principal); F12.90 Cannabis use, unspecified, uncomplicated; Z20.822 Contact with and (suspected) exposure to COVID-19; Z79.899 Other long term (current) drug therapy
CPT/HCPCS: 71046; 80048; 80076; 83735; 84484; 85025; 85379; 85610; 87635; 93005; 99283

== ENCOUNTER 2023-02-19 19:44 | Emergency (ER) | payer MEDICAID, SELFPAY ==
--- NOTE | 2023-02-19 | ECG_ITS ---
Test Reason : CHEST PAIN Blood Pressure : / mmHG Vent. Rate : 091 BPM Atrial Rate : 091 BPM P-R Int : 150 ms QRS Dur : 086 ms QT Int : 366 ms P-R-T Axes : 044 019 043 degrees QTc Int : 450 ms Normal sinus rhythm with PACs Normal ECG When compared with ECG of 02-NOV-2021 10:23, Premature atrial complexes Present Referred By: Generic ED Physician Electronically Signed By:Beto Lozoya
--- NOTE | ~2023-02-19 | XR_ITS ---
EXAMINATION: XR CHEST CLINICAL INFORMATION: Reason for Exam chest pain COMPARISON: Chest radiograph 11/02/2021 TECHNIQUE: One view of the chest FINDINGS: Lines and tubes: None. Clear lungs. No pleural effusion. No pneumothorax. Unchanged cardiomediastinal silhouette. XR/XR chest 1V IMPRESSION: * Clear lungs.
[2023-02-19 19:50] VITALS: BP 165/78; PULSE 87; RESP 16; TEMP 36.6; O2SAT 97; BMI 23.0
--- NOTE | 2023-02-19 19:51 | ED.GENADULT ---
HPI - General Adult General Chief complaint: Chest Pain Stated complaint: chest pain Time Seen by Provider: 02/19/23 22:51 Source: patient Mode of arrival: ambulatory Limitations: no limitations History of Present Illness HPI narrative: 57-year-old female came in for evaluation of chest pain. Patient's symptoms started about 1-2 days ago as rumbling sensation inside the chest that is there all the time, described as mild but constant, no aggravating factor, no relieving factors, is no association of CP/SOB/fever/chills. Patient is nonsmoker, no history of HTN or high cholesterol or diabetes, patient physically active and exercise regularly never had exertional chest pain, patient traveled on the cruise a month ago but declined any lower extremities tenderness or swelling, no history of DVT or PE. Related Data Previous Rx's Medication Instructions Recorded lorazepam 1 mg tablet 1 mg PO DAILY PRN anxiety #8 tabs 11/02/21 Allergies Allergy/AdvReac Type Severity Reaction Status Date / Time Penicillins [PCN] Allergy Unknown HIVES Verified 02/19/23 19:50 Review of Systems Review of Systems: All other systems are reviewed and are negative Constitutional: Reports as per HPI and Reports no additional constitutional complaints Eyes: Reports as per HPI and Reports no additional eye complaints Reports system reviewed and no additional complaints, except as documented Cardiovascular: Reports as per HPI and Reports no additional cardiovascular complaints Respiratory: Reports as per HPI and Reports no additional respiratory complaints Gastrointestinal: Reports as per HPI and Reports no additional gastrointestinal complaints Genitourinary: Reports no additional female genitourinary complaints Musculoskeletal: Reports no additional musculoskeletal complaints Skin/Breast: Reports system reviewed and no additional complaints, except as docu Psychiatric: Reports no additional psychiatric complaints Endocrine: Reports no additional endocrine complaints Hematologic/Lymphatic: Reports no additional hematologic/lymphatic complaints Allergic/Immunologic: Reports no additional allergic/immunologic complaints Reports system reviewed and no additional complaints, except as documented and Reports Abnormal speech present FOR[facility] Past Medical History Medical History COVID Kidney stone Patient denies significant medical history Polycystic ovarian disease Family History Family History Mother Brain aneurysm Father Small cell lung cancer Social History Social History Alcohol intake: current Alcohol intake frequency: holidays/special occasions only Alcohol type: wine Smoked in Last 30 Days: No Substance Use Type: Marijuana Advance Directives: No Advance Directives Information Provided: No Patient : No Physical Exam ED Vital Signs: Vital Signs - 24 hr 02/19/23 19:50 02/19/23 22:08 Temperature 97.9 F 98.2 F Pulse Rate 87 80 Respiratory Rate 16 17 Blood Pressure 165/78 H 177/100 H Pulse Oximetry 97 99 Oxygen Delivery Method Room Air Room Air BMI result Body Mass Index 23.0 Vital signs have been reviewed as appeared to be correct. Blood pressure normal. Heart rate normal. Respiration rate normal. Temperature normal. Oxygen saturation normal. Appearance: Alert. Oriented X3. No acute distress. Head: Normal external exam. Normocephalic. Atraumatic. No Reilly signs noted. No raccoon eyes noted Eyes: PERRLA. EOMI. Conjunctiva and sclera normal. Eyelids normal. ENT: TM's Normal. Pharynx normal. Uvula midline. Moist mucous membranes. No trismus noted. No drooling noted. No muffled voice noted. Neck: Normal inspection. Neck supple. FROM. No adenopathy. Thyroid Normal. No meningeal signs. No neck mass noted. CVS: Normal heart rate and rhythm. Heart sound normal. No murmurs noted. Pulses normal throughout. Respiratory: No respiratory distress. Painless inspiration. Breath sounds normal. No wheezes/rales/rhonchi noted. Chest nontender. No accessory muscle usage noted or decreased air movement noted. Abdomen: Soft and nontender. Bowel sounds normal in all 4 quadrants. No distention noted. No organomegaly noted. No visible injury noted. Back: No CVA tenderness. Full range of motion noted. Skin: Skin warm and dry. Normal skin color. Normal skin turgor. No rashes/lesions/lacerations noted. Extremities: No lower extremity edema. Extremities exhibit normal range of motion. Extremities nontender. Neuro: Oriented X 3. Cranial nerve exam: II-XII are grossly intact No motor deficit. No sensory deficit. Reflexes normal. Course Course Course Narrative: RME: 57 yold female presents to the ED for chest pain. patient denies any trauma, fever, chills, coughing, shortness of breath, leg swelling, or calf pain. EKG and labs ordered Reevaluation(s) Reevaluation #1: 57-year-old female came in with nonspecific mild chest pain with no radiation, unremarkable labs, negative D-dimer and VSS. Will discharge to follow with Dr. Boyd for further out patient evaluation. Time: 23:02 Medical Decision Making Differential Diagnosis Differential Diagnoses: The differential diagnosis associated with the presentation includes (ACS, pulmonary embolism, DVT, pneumonia, pneumothorax, costochondritis, myofascial chest pain, electrolyte abnormalities, severe anemia.) Admission/Observation Consideration of admission/observation: Escalation of care including admission/observation considered Lab Data MDM Lab Attestation statement: I reviewed the patient's lab results. 02/19/23 20:01 02/19/23 20: Labs: Lab Results 02/19/23 02/19/23 02/19/23 Range/Units 20:01 20:01 20:01 WBC 7.2 (4.8-10.8) X10*3/uL RBC 4.46 (4.20-5.50) X10*6/uL Hgb 13.6 (12.0-16.0) g/dl Hct 40.2 (37.0-47.0) % MCV 90.1 (80.0-98.0) fL MCH 30.5 (27.0-33.0) pg MCHC 33.8 (31.0-35.0) g/dl RDW 12.7 (11.0-16.0) % Plt Count 287 (160-400) X10*3/uL MPV 9.2 L (9.4-12.3) fL Immature Gran % (Auto) 0.3 (0.0-0.4) % Neut % (Auto) 62.6 (45-73) % Lymph % (Auto) 27.3 (20-40) % [place] % (Auto) 8.3 (2-11) % Eos % (Auto) 1.1 (0-4) % Baso % (Auto) 0.4 (0-2) % Lymph # (Auto) 2.0 (1.2-4.9) X10*3/uL [place] # (Auto) 0.6 (0.1-1.2) X10*3/uL Eos # (Auto) 0.1 (0.0-0.4) X10*3/uL Baso # (Auto) 0.0 (0.0-0.2) X10*3/uL Abs Immat Gran (auto) 0.02 (0.00-0.03) X10*3/uL Absolute Neuts (auto) 4.5 (2.0-8.3) x10*3/uL Absolute Nucleated RBC 0.000 (0.0-0.012) X10*3/uL Nucleated RBC % (auto) 0.0 (0.0-0.2) /100WBC PT 9.6 L (10.0-13.1) SEC INR 0.8 L (0.9-1.1) APTT 28.0 (26.0-36.4) SEC D-Dimer High Sensitivty < 150 NG/ML Sodium 142 (135-145) mmol/L Potassium 3.8 (3.3-5.1) mmol/L Chloride 103 (96-108) mmol/L Carbon Dioxide 27 (22-29) mmol/L Anion Gap 16 (12-20) BUN 19 H (9-16) mg/dL Creatinine 0.72 (0.5-1.4) mg/dL Estim Creat Clear Calc 80.7 Estimated GFR > 60 Random Glucose 121 H (60-115) mg/dL Calcium 9.6 (8.4-10.2) mg/dL Total Bilirubin 0.5 (0.0-1.0) mg/dL AST 24 (5-31) U/L ALT 14 (0-31) U/L Alkaline Phosphatase 75 (39-117) U/L Troponin I High Sens (<3.5-17.0) ng/L B-Natriuretic Peptide (<100) pg/mL Total Protein 7.5 (6.5-8.0) g/dL Albumin 4.4 (3.5-5.0) g/dL 02/19/23 02/19/23 Range/Units 20:01 20:01 WBC (4.8-10.8) X10*3/uL RBC (4.20-5.50) X10*6/uL Hgb (12.0-16.0) g/dl Hct (37.0-47.0) % MCV (80.0-98.0) fL MCH (27.0-33.0) pg MCHC (31.0-35.0) g/dl RDW (11.0-16.0) % Plt Count (160-400) X10*3/uL MPV (9.4-12.3) fL Immature Gran % (Auto) (0.0-0.4) % Neut % (Auto) (45-73) % Lymph % (Auto) (20-40) % [place] % (Auto) (2-11) % Eos % (Auto) (0-4) % Baso % (Auto) (0-2) % Lymph # (Auto) (1.2-4.9) X10*3/uL [place] # (Auto) (0.1-1.2) X10*3/uL Eos # (Auto) (0.0-0.4) X10*3/uL Baso # (Auto) (0.0-0.2) X10*3/uL Abs Immat Gran (auto) (0.00-0.03) X10*3/uL Absolute Neuts (auto) (2.0-8.3) x10*3/uL Absolute Nucleated RBC (0.0-0.012) X10*3/uL Nucleated RBC % (auto) (0.0-0.2) /100WBC PT (10.0-13.1) SEC INR (0.9-1.1) APTT (26.0-36.4) SEC D-Dimer High Sensitivty NG/ML Sodium (135-145) mmol/L Potassium (3.3-5.1) mmol/L Chloride (96-108) mmol/L Carbon Dioxide (22-29) mmol/L Anion Gap (12-20) BUN (9-16) mg/dL Creatinine (0.5-1.4) mg/dL Estim Creat Clear Calc Estimated GFR Random Glucose (60-115) mg/dL Calcium (8.4-10.2) mg/dL Total Bilirubin (0.0-1.0) mg/dL AST (5-31) U/L ALT (0-31) U/L Alkaline Phosphatase (39-117) U/L Troponin I High Sens < 2.7 (<3.5-17.0) ng/L B-Natriuretic Peptide 54 (<100) pg/mL Total Protein (6.5-8.0) g/dL Albumin (3.5-5.0) g/dL Independent Interpretation I performed an independent interpretation of an: EKG (Normal sinus rhythm at 91 beats per minutes, normal intervals, normal axis deviation,) and Plain X-Ray (Chest: No acute intrathoracic pathology.) Radiology Impression Discussion of test interpretation with radiology: I have reviewed the radiologist's reading. Discharge Plan Discharge Clinical Impression: Atypical chest pain Patient Disposition: Home, Self-Care Instructions: Chest Pain (ED) Prescriptions: No Action lorazepam 1 mg tablet 1 mg PO DAILY PRN (Reason: anxiety) Qty: 8 0RF Referrals: Tonio Boyd MD [Physician] - Interventions: ED Discharge Assessment Last Done: 02/19/23 23:25 Discharge Date/Time: 02/19/23 23:26
[2023-02-19 20:15] LABS: MANUAL DIFF FLAG NO
[2023-02-19 20:18] LABS: Basophils Percent Auto 0.4 % (0-2); Eosinophils Absolute Auto 0.1 X10*3/uL (0.0-0.4); Eosinophils Percent Auto 1.1 % (0-4); Hematocrit 40.2 % (37.0-47.0); Hemoglobin 13.6 g/dl (12.0-16.0); Imm Gran Abs Auto 0.02 X10*3/uL (0.00-0.03); Imm Gran Pct Auto 0.3 % (0.0-0.4); Lymphocytes Percent Auto 27.3 % (20-40); Mean Corpuscular HGB Conc 33.8 g/dl (31.0-35.0); Mean Corpuscular Hemoglobin 30.5 pg (27.0-33.0); Mean Corpuscular Volume 90.1 fL (80.0-98.0); Mean Platelet Volume 9.2 fL (9.4-12.3); Monocytes Absolute Auto 0.6 X10*3/uL (0.1-1.2); Monocytes Percent Auto 8.3 % (2-11); Neutrophils Absolute Auto 4.5 x10*3/uL (2.0-8.3); Neutrophils Percent Auto 62.6 % (45-73); Platelet Count 287 X10*3/uL (160-400); Red Blood Count 4.46 X10*6/uL (4.20-5.50); Red Cell Distribution Width 12.7 % (11.0-16.0); White Blood Count 7.2 X10*3/uL (4.8-10.8)
[2023-02-19 20:29] LABS: INTERNATIONAL NORM RATIO 0.8 (0.9-1.1); Prothrombin Time 9.6 SEC (10.0-13.1)
[2023-02-19 20:32] LABS: Alanine Aminotransferase 14 U/L (0-31); Albumin Level 4.4 g/dL (3.5-5.0); Alkaline Phosphatase 75 U/L (39-117); Anion Gap 16 (12-20); Aspartate Amino Transferase 24 U/L (5-31); Bilirubin Total 0.5 mg/dL (0.0-1.0); Blood Urea Nitrogen 19 mg/dL (9-16); Calcium 9.6 mg/dL (8.4-10.2); Carbon Dioxide 27 mmol/L (22-29); Chloride 103 mmol/L (96-108); Creatinine Clr Calc Pharmacy 80.7; Estimated Glomerular Filt Rate > 60; Glucose Random 121 mg/dL (60-115); Potassium 3.8 mmol/L (3.3-5.1); Sodium 142 mmol/L (135-145); Total Protein 7.5 g/dL (6.5-8.0)
[2023-02-19 20:37] LABS: B Type Natriuretic Peptide 54 pg/mL (<100)
[2023-02-19 20:49] LABS: Troponin-I High Sensitivity < 2.7 ng/L (<3.5-17.0)
[2023-02-19 22:08] VITALS: BP 177/100; PULSE 80; RESP 17; TEMP 36.8; O2SAT 99
[2023-02-19 22:09] VITALS: PULSE 92
--- NOTE | 2023-02-19 22:21 | MHC.EDTECH ---
This tech assumed care of this Pt upon arrival. Pt changed over into hospital gown and placed on the site monitor. Pt had an elevated BP which this Tech made the RN aware of
[2023-02-19 23:12] LABS: D Dimer High Sensitivity < 150 NG/ML
== END 2023-02-19 23:26 | disposition home or self-care (01) ==
PROVIDERS: Physician Assistant; Emergency Provider Emergency Medicine
DX: R07.89 Other chest pain (principal); R06.02 Shortness of breath; Z79.899 Other long term (current) drug therapy
CPT/HCPCS: 36415; 71045; 80053; 83880; 84484; 85025; 85379; 85610; 85730; 93005; 99283; 99284; 99285

== ENCOUNTER 2025-06-25 11:26 | Outpatient (AMB) | payer OTHER, SELFPAY ==
--- NOTE | 2025-06-25 11:45 | A.OFFPC_ITS ---
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 CV: Blood pressure today in the is elevated. She states that recently her blood pressure has been a bit more elevated. She has never had hypertension before. She has also not been seen in a few years. She recently went to the ER for chest pain and palpitations and was noted to have hypertension but did not want them to treat it. She has monitored her blood pressure at a few locations and it has been elevated. She is currently asymptomatic in regards to chest pain. She states that when she has noticed it she has also started heart was racing in her blood pressure was high. The chest pain she states it happened at any time and she wonders if it is caused by anxiety. It resolves on its own. She does not feel short of breath, lightheaded or dizzy with it. Does not believe she has a family history of heart disease however her mother did got so of a brain aneurysm at 59 and her father in his 50s from lung cancer. Does not know much about the family heart disease. Colonoscopy: Overdue Mammo: Overdue Bone density: Overdue Book Shelver: Overdue PFSH Medical History (Updated 06/25/25 @ 12:12 by Rosa Khalil PA-C) COVID Kidney stone Polycystic ovarian disease Patient denies significant medical history Surgical History (Updated 06/25/25 @ 13:06 by Peg Marie CMA) H/O partial adrenalectomy Family History (Updated 06/25/25 @ 13:07 by Peg Marie CMA) Mother Brain aneurysm Father Small cell lung cancer Maternal Grandmother History of throat cancer Social History (Updated 06/25/25 @ 13:07 by Peg Marie CMA) Housing: Apartment Alcohol intake: current Alcohol intake frequency: holidays/special occasions only Alcohol type: wine Patient Tobacco Use Status: Former Tobacco user (quit 30 years ago) Cigarette Packs Per Day: 1 Years Smoked: 20 e-Cigarette/Vaping Use: Never Used Second Hand Smoke Exposure: No Substance Use Type: Marijuana service: No Current occupational status: employed Current occupation: [employer] Current occupational exposures/hazards: No Cognitive needs: No Hearing needs: No Vision needs: No Questionnaire PHQ-9 Over the last 2 weeks, how often have you been bothered by any of the following problems? 1. Little interest or pleasure in doing things: nearly every day 2. Feeling down, depressed, or hopeless: not at all 3. Trouble falling or staying asleep, or sleeping too much: not at all 4. Feeling tired or having little energy: not at all 5. Poor appetite or overeating: not at all 6. Feeling bad about yourself - or that you are a failure or have let yourself or your family down: not at all 7. Trouble concentrating on things, such as reading the newspaper or watching television: not at all 8. Moving or speaking so slowly that other people could have noticed. Or the opposite - being so fidgety or restless that you have been moving around a lot more than usual: not at all 9. Thoughts that you would be better off or of hurting yourself in some way: not at all Total score: 3 Depression Screening Interpretation: Negative Depression Screening Done: Yes 29096 - PHQ-9 Billing: Yes Source: Developed by Drs. Colin Lam, Rosario Pereira, Tomas Baumann and colleagues, with an educational daron from [employer]. Thrive Questionnaire Date Thrive assessed: 06/25/25 I am a: Patient What is your living situation today?: I have a steady place to live Within the past 12 months, did the food you bought not last and you didn't have the money to get more?: Never true Within the past 12 months, did you worry whether your food would run out before you got money to buy more?: Never true Do you have trouble paying for medicines?: No Do you have trouble getting transportation to medical appointments?: No Do you have trouble paying your heating and electricity bill?: No Do you have trouble taking care of your child, family member or friend?: No Do you have trouble with day-to-day activities such as bathing, preparing meals, shopping, managing finances, etc.?: No Are you currently unemployed and looking for a job?: No Are you interested in more education?: No Please select the resources that you would like help with: None Currently or been in a relationship where the following occur: No concerns reported THRIVE Score: 0 AUDIT C Alcohol Use Questionnaire (AUDIT-C) 1. How often do you have a drink containing alcohol?: 2-3 times a week 2. How many drinks containing alcohol do you have on a typical day when you are drinking?: 1 or 2 3. How often do you have six or more drinks on one occasion?: Never Total Score: 3 MELISSA-7 AMB Questionnaire MELISSA-7 Feeling nervous, anxious, or on edge: 1 = Several days Not being able to stop or control worryin = Several days Worrying too much about different things: 1 = Several days Trouble relaxin = Not at all Being so restless that it is hard to sit still: 0 = Not at all Becoming easily annoyed or irritable: 0 = Not at all Feeling afraid as if something awful might happen: 0 = Not at all Total MELISSA-7 score (0-4 normal; 5-9 mild; 10-14 moderate; 15-21 severe): 3 Source: Developed by Drs. Colin Lam, Rosario Pereira, Tomas Baumann and colleagues, with an educational daron from [employer]. MELISSA-7 Assessment Billing MELISSA-7 Assessment Tool: MELISSA-7 Assessment 03390 Physical exam (Primary Care) Vital Signs: Last Vital Signs Temp 98.4 F 06/25/25 11:49 Pulse 82 06/25/25 11:49 Resp 14 06/25/25 11:49 BP 126/90 H 06/25/25 11:55 BMI result Body Mass Index 23.3 Tobacco/Smoking Status: Tobacco use Status Tobacco use date assessed 06/25/25 06/25/25 11:53 Patient Tobacco Use Status Former Tobacco user (quit 30 06/25/25 11:53 years ago) e-Cigarette/Vaping Use Never Used 06/25/25 11:53 PHQ-9: PHQ-9 Score PHQ-9: Total score 3 06/27/25 09:25 Depression Screening Interpretation: Negative Thrive Assessment: Date of Thrive Assessment Date Thrive assessed 06/25/25 06/25/25 11:53 Currently or been in a relationship where the following occur: No concerns reported Const Orientation/consciousness: patient oriented x3 HENMT Ears: hearing grossly normal bilaterally Neck Thyroid: Thyroid normal Lymphatic: no lymphadenopathy noted Resp Auscultation: clear to auscultation bilaterally Cardio Rate: regular rate Rhythm: regular rhythm Heart sounds: S1 normal heart sound present and S2 normal heart sound present GI Inspection: Yes normal to inspection Palpation (GI): Soft to palpation and Other GI palpation findings present (nontender, no cva tenderness) Auscultation: normoactive bowel sounds Rectal Exam - Female: deferred Skin General skin exam: no rashes or lesions noted Neuro General: patient oriented x3, gait normal and no focal motor deficits Coding Level of Care Code New Pt Level 4 (09978) Complex EM visit Add On G2211 Diagnoses Palpitations R00.2 HTN (hypertension) I10 Family history of brain aneurysm Z82.49 Atypical chest pain R07.89 Additional Codes PHQ-9 - 01370 - PHQ-9 Billing: Yes ([id number]) MELISSA-7 Assessment Billing - MELISSA-7 Assessment Tool: MELISSA-7 Assessment 74584 ([id number]) Assessment & Plan Assessment & Plan (1) Palpitations: Code(s): R00.2 - Palpitations Category: Medical Plan: Holter Labs Short term follow up (2) HTN (hypertension): Code(s): I10 - Essential (primary) hypertension Category: Medical Plan: We will start lisinopril. We discussed risks and benefits and adverse effects of this medication. Short term follow up in a few weeks to be reassessed. (3) Family history of brain aneurysm: Code(s): Z82.49 - Family history of ischemic heart disease and other diseases of the circulatory system Category: Medical Plan: MR angio ordered (4) Atypical chest pain: Code(s): R07.89 - Other chest pain Category: Medical Plan: Chest x-ray, Stress test, Holter and echo ordered Plan Labs ordered Mammogram ordered Bone density ordered Referral to soil surveyor ordered Referral to derm for a skin check-per request Referral to GI to discuss colonoscopy Orders: Orders ECG holter monitor 24 hour 06/25/25 R00.2 - Palpitations, R03.0 - Elevated blood-pressure reading, without diagnosis of hypertension Complete Blood Count Auto Diff 06/25/25 I10 - Essential (primary) hypertension, R00.2 - Palpitations, R03.0 - Elevated blood-pressure reading, without diagnosis of hypertension Lipid Panel 06/25/25 I10 - Essential (primary) hypertension, R00.2 - Palpitations, R03.0 - Elevated blood-pressure reading, without diagnosis of hypertension UA CC w/rflx Micro + Cult 06/25/25 I10 - Essential (primary) hypertension, R00.2 - Palpitations, R03.0 - Elevated blood-pressure reading, without diagnosis of hypertension, R30.0 - Dysuria Microalbumin, Random (w Creat) 06/25/25 I10 - Essential (primary) hypertension, R00.2 - Palpitations, R03.0 - Elevated blood-pressure reading, without diagnosis of hypertension Hemoglobin A1c 06/25/25 I10 - Essential (primary) hypertension, R00.2 - Palpitations, R03.0 - Elevated blood-pressure reading, without diagnosis of hypertension, R73.01 - Impaired fasting glucose MR angio head wo con 06/25/25 Z82.49 - Family history of ischemic heart disease and other diseases of the circulatory system XR chest 2V 06/25/25 R07.89 - Other chest pain MM screening mammo BI 06/25/25 Z12.31 - Encounter for screening mammogram for malignant neoplasm of breast CA stress test 06/25/25 R00.2 - Palpitations, R03.0 - Elevated blood-pressure reading, without diagnosis of hypertension CA echo transthoracic complete 06/25/25 R00.2 - Palpitations, R03.0 - Elevated blood-pressure reading, without diagnosis of hypertension Comprehensive Louise. Panel Fast 06/25/25 I10 - Essential (primary) hypertension, R00.2 - Palpitations, R03.0 - Elevated blood-pressure reading, without diagnosis of hypertension TSH reflex Free T4 06/25/25 I10 - Essential (primary) hypertension, R00.2 - Palpitations, R03.0 - Elevated blood-pressure reading, without diagnosis of hypertension XR DEXA axial skeleton 06/25/25 N95.1 - Menopausal and female climacteric states Referrals Dermatology Referral Z12.83 - Encounter for screening for malignant neoplasm of skin Gastroenterology Referral Z12.11 - Encounter for screening for malignant neoplasm of colon [facility] Referral Z01.419 - Encounter for gynecological examination (general) (routine) without abnormal findings Medications: New lisinopril 10 mg PO DAILY 90 tabs 0RF
[2025-06-25 11:49] VITALS: BP 136/92; PULSE 82; RESP 14; TEMP 36.9; BMI 23.3
[2025-06-25 11:55] VITALS: BP 126/90
== END 2025-06-25 12:20 | disposition home or self-care (01) ==
LOC: HO.HMCFM 11:27
PROVIDERS: PCP Physician Assistant; Visit Provider Physician Assistant
DX: R00.2 Palpitations (principal); I10 Essential (primary) hypertension; Z82.49 Family history of ischemic heart disease and other diseases of the circulatory system; R07.89 Other chest pain

== ENCOUNTER → 2025-06-25 11:26 | Outpatient (BNVA) | payer OTHER, SELFPAY | PROVIDERS: PCP Physician Assistant; Visit Provider Physician Assistant | DX: I10 Essential (primary) hypertension (principal); R00.2 Palpitations; R07.9 Chest pain, unspecified; R07.89 Other chest pain; Z82.49 Family history of ischemic heart disease and other diseases of the circulatory system; N95.1 Menopausal and female climacteric states | CPT/HCPCS: 96127; 99202 ==

== ENCOUNTER 2025-07-30 11:17 | Outpatient (AMB) | payer OTHER, SELFPAY ==
[2025-07-30 11:18] VITALS: BP 156/82; PULSE 78; RESP 14; TEMP 36.6; O2SAT 95; BMI 23.1
--- NOTE | 2025-07-30 11:18 | A.OFFPC_ITS ---
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 -she was supposed to get labs prior to dada munguia's appointment but -she is scheduled with mammography for h er bone density and her mammogram next month. She is scheduled to follow with OBGYN in December. Cardiac testing is scheduled next week. MRA is not yet scheduled due to fear of MRI machine. CV: Blood pressure today is 134/74. She was recently started on lisinopril 10 mg. tolerating well. reduced amount of palpitations. BP is at home are similar if not a little higher. 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 PFSH Medical History (Updated 06/25/25 @ 12:12 by Rosa Khalil PA-C) COVID Kidney stone Polycystic ovarian disease Patient denies significant medical history Surgical History (Updated 06/25/25 @ 13:06 by Peg Marie CMA) H/O partial adrenalectomy Family History Mother Brain aneurysm Father Small cell lung cancer Maternal Grandmother History of throat cancer Social History (Updated 07/30/25 @ 11:27 by Peg Marie CMA) Housing: Apartment Alcohol intake: current Alcohol intake frequency: holidays/special occasions only Alcohol type: wine Patient Tobacco Use Status: Former Tobacco user (quit 30 years ago) Cigarette Packs Per Day: 1 Years Smoked: 20 e-Cigarette/Vaping Use: Never Used Second Hand Smoke Exposure: No Substance Use Type: Marijuana service: No Current occupational status: employed 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 Current occupational exposures/hazards: No Cognitive needs: No Hearing needs: No Vision needs: No Questionnaire Thrive Questionnaire Date Thrive assessed: 06/25/25 I am a: Patient What is your living situation today?: I have a steady place to live Within the past 12 months, did the food you bought not last and you didn't have the money to get more?: Never true Within the past 12 months, did you worry whether your food would run out before you got money to buy more?: Never true Do you have trouble paying for medicines?: No Do you have trouble getting transportation to medical appointments?: No Do you have trouble paying your heating and electricity bill?: No Do you have trouble taking care of your child, family member or friend?: No Do you have trouble with day-to-day activities such as bathing, preparing meals, shopping, managing finances, etc.?: No Are you currently unemployed and looking for a job?: No Are you interested in more education?: No Please select the resources that you would like help with: None Currently or been in a relationship where the following occur: No concerns reported THRIVE Score: 0 AUDIT C Alcohol Use Questionnaire (AUDIT-C) 1. How often do you have a drink containing alcohol?: 2-3 times a week 2. How many drinks containing alcohol do you have on a typical day when you are drinking?: 1 or 2 3. How often do you have six or more drinks on one occasion?: Never Total Score: 3 Physical exam (Primary Care) Vital Signs: Last Vital Signs Temp 98 F 07/30/25 11:18 Pulse 78 07/30/25 11:18 Resp 14 07/30/25 11:18 BP 134/74 07/30/25 11:26 Pulse Ox 95 07/30/25 11:18 Oxygen Delivery Method Room Air 07/30/25 11:18 BMI result Body Mass Index 23.1 Tobacco/Smoking Status: Tobacco use Status Tobacco use date assessed 07/30/25 07/30/25 11:22 Patient Tobacco Use Status Former Tobacco user (quit 30 07/30/25 11:27 years ago) e-Cigarette/Vaping Use Never Used 07/30/25 11:27 Thrive Assessment: Date of Thrive Assessment Date Thrive assessed 06/25/25 07/30/25 11:22 Currently or been in a relationship where the following occur: No concerns reported Const Orientation/consciousness: patient oriented x3 HENMT Ears: hearing grossly normal bilaterally Neck Thyroid: Thyroid normal Lymphatic: no lymphadenopathy noted Resp Auscultation: clear to auscultation bilaterally Cardio Rate: regular rate Rhythm: regular rhythm Heart sounds: S1 normal heart sound present and S2 normal heart sound present GI Inspection: Yes normal to inspection Palpation (GI): Soft to palpation and Other GI palpation findings present (nontender, no cva tenderness) Auscultation: normoactive bowel sounds Rectal Exam - Female: deferred Skin General skin exam: no rashes or lesions noted Neuro General: patient oriented x3, gait normal and no focal motor deficits Coding Level of Care Code Est Pt Level 4 (74674) Complex EM visit Add On G2211 Diagnoses HTN (hypertension) I10 Palpitations R00.2 Family history of brain aneurysm Z82.49 Assessment & Plan Assessment & Plan (1) HTN (hypertension): Code(s): I10 - Essential (primary) hypertension Category: Medical Plan: Improved. increase lisinopril to 20 mg daily. advised to complete labs (2) Palpitations: Code(s): R00.2 - Palpitations Category: Medical Plan: Scheduled for her Holter monitor, echo and stress test next week. (3) Family history of brain aneurysm: Code(s): Z82.49 - Family history of ischemic heart disease and other diseases of the circulatory system Category: Medical Plan: Advised to complete the MRA. i have ordered lorazepam to use as needed for this. We discussed risks and benefits and adverse effects of medication. Medications: New lisinopril 20 mg PO DAILY 90 tabs 2RF lorazepam take 1 tab po 30 min pre procedure, may repeat dose if needed 0.5 mg PO DAILY PRN 5 tabs 0RF anxiety
[2025-07-30 11:26] VITALS: BP 134/74
--- OUTSIDE RECORDS SUMMARY | 2025-07-30 14:00 | XMS_ITS | Clinical Summary ---
Author Organization [facility] Address [address] [place] [address] Phone Care Team Providers Care Wood Grinder Name Role Phone Rosa Khalil Primary Care Provider [phone] Allergies Active Allergy Reactions Criticality Noted Date Comments Penicillins 05/03/2025 Medications buprenorphine-n aloxone 8.6-2.1 mg tablet, sublingual Place 0.5 tablets under the tongue 1 (one) time each day. After the medication is completely dissolved, take a large sip of water, swish it around teeth and gums, and swallow. Wait at least 1 hour before brushing teeth to avoid damage to your teeth. Max Daily Amount: 0.5 tablets Active LORazepam (Ativan) 1 mg tablet Take 1 tablet (1 mg total) by mouth 3 (three) times a day if needed for anxiety for up to 5 days. Max Daily Amount: 3 mg 10 tablet Active Active Problems No known active problems Encounters Date Type Department Care Team Description 05/03/2025 6:53 PM EDT - 05/03/2025 10:37 PM EDT Emergency [facility] Emergency [address] [place] [id number] Selvin Murphy MD Chest pain, unspecified type (Primary Dx); Hypertension, unspecified type Discharge Disposition: Home or Self Care from Last 3 Months Social History Tobacco Use Types Packs/Day Years Used Date Smoking Tobacco: Never Smokeless Tobacco: Never Tobacco Cessation:Counseling Given: Not Answered Alcohol Use Standard Drinks/Week Comments Yes 0 (1 standard drink = 0.6 oz pur e alcohol) Comments Unknown Sex and Gender Information Value Date Recorded Sex Assigned at Not on file Legal Sex Female 6:49 PM EDT Gender Identity Not on file Sexual Orientation Not on file Obstetrics History Last Filed Vital Signs Vital Sign Reading Time Taken Comments Blood Pressure 143/76 05/03/2025 10:11 PM EDT Pulse 67 05/03/2025 10:11 PM EDT Temperature 36.6 C (97.8 F) 05/03/2025 10:11 PM EDT Respiratory Rate 22 05/03/2025 10:11 PM EDT Oxygen Saturation 95% 05/03/2025 10:11 PM EDT Inhaled Oxygen Concentration - - Weight 63.5 kg (140 lb) 05/03/2025 6:57 PM EDT Height 167.6 cm (5' 6 ) 05/03/2025 6:57 PM EDT Body Mass Index 22.6 05/03/2025 6:57 PM EDT Plan of Treatment Health Maintenance Due Date Last Done Comments Breast Cancer Screening 1965 Colorectal Cancer Screening: Colonoscopy 1965 DTaP,Tdap,and Td Vaccines (1 - Tdap) 1984 Cervical Cancer Screening: P ap Smear 1986 Pneumococcal Vaccine: 50+ Ye ars (1 of 1 - PCV) 2015 Zoster Vaccines (1 of 2) 2015 Depression Screening 09/18/2024 Cholesterol Screening (Lipid Panel) 05/03/2025 HIV Screening 05/03/2025 Hepatitis C Screening 05/03/2025 Social Influencers of Health Screening 05/03/2025 COVID-19 Vaccine (1 - 2024-2 6 season) 2025 Influenza Vaccine (#1) 2025 Hypertension/CHF/CAD Annual BMP Blood Test 05/03/2026 05/03/2025 RSV Immunization Adult Patie nts (1 - 1-dose 75+ series) 2040 HIB Vaccines Aged Out No longer eligi ble based on patient's age to complete this topic HPV Vaccines Aged Out No longer eligi ble based on patient's age to complete this topic Hepatitis A Vaccines Aged Out No long er eligible based on patient's age to complete this topic Hepatitis B Vaccines Aged Out No long er eligible based on patient's age to complete this topic IPV Vaccines Aged Out No longer eligi ble based on patient's age to complete this topic MMR Vaccines Aged Out No longer eligi ble based on patient's age to complete this topic Meningococcal ACWY Vaccine Aged Out N o longer eligible based on patient's age to complete this topic Meningococcal B Vaccine Aged Out No l onger eligible based on patient's age to complete this topic RSV Immunization Patients Un arlene 20 months Aged Out No longer eligible b ased on patient's age to complete this topic Varicella Vaccines Aged Out No longer eligible based on patient's age to complete this topic Procedures Procedure Name Priority Date/Time Associated Diagnosis Comments RHYTHM ECG, REPORT Routine 05/03/2025 8: 20 PM EDT THYROID STIMULATING HORMONE WITH REFLEX FREE T4 STAT 05/03/2025 8:20 PM EDT D-DIMER STAT 05/03/2025 8:20 PM EDT TROPONIN I HIGH SENSITIVITY STAT 05/03/2025 8:20 PM EDT XR CHEST 1 VIEW STAT 05/03/2025 7:40 PM EDT MAGNESIUM Add-On 05/03/2025 7:06 PM EDT LIPASE Add-On 05/03/2025 7:06 PM EDT CBC WITH AUTO DIFFERENTIAL STAT 05/03/2025 7:06 PM EDT TROPONIN I HIGH SENSITIVITY STAT 05/03/2025 7:06 PM EDT COMPREHENSIVE METABOLIC PANEL STAT 05/03/2025 7:06 PM EDT CBC AND DIFFERENTIAL STAT 05/03/2025 7:06 PM EDT ECG 12-LEAD Routine 05/03/2025 6:58 PM EDT from Last 3 Months Results * RHYTHM ECG, REPORT (05/03/2025 8:20 PM EDT) Narrative Selvin Murphy MD - 05/03/2025 8:20 PM EDT Selvin Murphy MD 05/03/2025 10:26 PM ECG Rhythm Interpretation and Report Date/Time: 05/03/2025 8:20 PM Performed by: Selvin Murphy MD Authorized by: Selvin Murphy MD ECG interpreted by ED Physician in the absence of a insurance agent: yes Interpretation: Details: Sinus tachycardia 122 bpm; AK 132 MS; QRS 88 MS; QTc 470 MS; no STEMI ectopy or arrhythmia otherwise Selvin Murphy MD ECG ORDERABLES Final Result * Troponin I high sensitivity (05/03/2025 8:20 PM EDT) Only the most recent of2 resultswithin the time period is included. [facility] High Sensitivity Troponin I 3 0 - 14 ng/L LAB CHEMISTRY METHOD 05/03/2025 8:50 PM EDT [facility] Blood Venous blood specimen / Unknown Venipuncture / Unknown 05/03/2025 8:20 PM EDT 05/03/2025 8:23 PM EDT Narrative [facility] - 05/03/2025 8:50 PM EDT HSTnI results stratify to HIGH RISK category if any value >100 ng/L or delta at 1 hour is greater than or equal to 15 ng/L (male and female). Note: Delta values are not applicable if symptoms began more than 12 hours pre-arrival. Risk stratification should include the calculation of the HEART score. Testing performed using [employer] Access AccuTnI+3 Assay. us Selvin Murphy MD LAB BLOOD ORDERABLES Final Res ult [facility] [address] [place] [address], [place] [phone] * Thyroid stimulating hormone with reflex free T4 (05/03/2025 8:20 PM EDT) [facility] TSH 2.40 0.45 - 5.33 mcIU/mL LAB CHEMISTRY METHOD 05/03/2025 9:07 PM EDT [facility] Blood Venous blood specimen / Unknown Venipuncture / Unknown 05/03/2025 8:20 PM EDT 05/03/2025 8:23 PM EDT Selvin Murphy MD LAB BLOOD ORDERABLES Final Res ult Performing Organization Address City/[facility]/ZIP Co de Phone Number [facility] [address] [place] [address], [place] [phone] * D-dimer, quantitative (05/03/2025 8:20 PM EDT) D-Dimer, Quant (D-DU) <150 <231 ng/mL DDU LAB COAGULATION METHOD 05/03/2025 8:41 PM EDT [facility] Blood Venous blood specimen / Unknown Venipuncture / Unknown 05/03/2025 8:20 PM EDT 05/03/2025 8:23 PM EDT Narrative [facility] - 05/03/2025 8:41 PM EDT This assay has been approved by the Food and Drug Administration (FDA) for use in excluding low and moderate risk patients suspected of venous thromboembolism, including deep vein thrombosis (DVT) and pulmonary embolism (PE) when used in conjunction with a clinical Pre test Probability model such as Wells, et al. The D Dimer result should not be used alone to rule in DVT and or PE. us Selvin Murphy MD LAB BLOOD ORDERABLES Final Res ult [facility] [address] [place] [address], [place] [phone] * XR Chest 1 View (05/03/2025 7:40 PM EDT) Anatomical Region Laterality Modality Body Radiographic Nicole ging 05/03/2025 7:51 PM EDT Impressions 05/03/2025 7:52 PM EDT No focal consolidation or pleural effusion. -------- FINAL REPORT -------- Dictated By: Tamir Rios Dictated Date: 05/03/2025 19:51 ET Assigned Physician: Tamir Rios Reviewed and Electronically Signed By: Tamir Rios Signed Date: 05/03/2025 19:52 ET Workstation ID: [id number] Transcribed By: Self Edit Transcribed Date: 05/03/2025 19:51 ET Narrative 05/03/2025 7:52 PM EDT Examination: Chest radiograph Indication: Female, 59 years of age, chest pain. Technique: A single portable AP view of the chest Comparison: There is no prior study available for comparison at this institution. Findings: The heart is normal in size. There are atherosclerotic calcifications of the aortic arch. There is no consolidation, pleural effusion, or pneumothorax. The bones are unremarkable. Procedure Note Tamir Rios MD - 05/03/2025 Examination: Chest radiograph Indication: Female, 59 years of age, chest pain. Technique: A single portable AP view of the chest Comparison: [facility] Findings: The heart is normal in size. There are atherosclerotic calcifications ofthe aortic arch. There is no consolidation, pleural effusion, orpneumothorax. The bones are unremarkable. IMPRESSION: No focal consolidation or pleural effusion. -------- FINAL REPORT -------- Dictated By: Tamir Rios Dictated Date: 05/03/2025 19:51 ET Assigned Physician: Tamir Rios Reviewed and Electronically Signed By: Tamir Rios Signed Date: 05/03/2025 19:52 ET Workstation ID: [id number] Transcribed By: Self Edit Transcribed Date: 05/03/2025 19:51 ET us Selvin Murphy MD IMG XR PROCEDURES Final Result * CBC auto differential (05/03/2025 7:06 PM EDT) WBC 8.1 4.0 - 10.5 K/mcL LAB [facility]EMETOLOGY [facility] RBC 4.33 4.20 - 5.40 M/mcL LAB HEMETOLOGY METHOD 05/03/2025 7[facility] Hemoglobin 13.1 12.5 - 16.0 g/dL LAB HEMETOLOGY METHOD 05/03/2025 7[facility] Hematocrit 38.7 37.0 - 47.0 % LAB HEMETOLOGY METHOD 05/03/2025 7:11 PM [facility] MCV 89.4 78.0 - 100.0 FL LAB HEMETOLOGY METHOD 05/03/2025 7:11 PM [facility] MCH 30.3 25.0 - 33.0 pcg LAB HEMETOLOGY METHOD 05/03/2025 7:11 PM [facility] MCHC 33.9 32.0 - 36.0 g/dL LAB HEMETOLOGY METHOD 05/03/2025 7:11 PM [facility] RDW 12.6 12.1 - 16.2 % LAB HEMETOLOGY METHOD 05/03/2025 7:11 PM [facility] Platelets 271 150 - 450 K/mcL LAB HEMETOLOGY METHOD 05/03/2025 7:11 PM [facility] MPV 8.7 7.4 - 11.4 FL LAB HEMETOLOGY METHOD 05/03/2025 7:11 PM [facility] Neutrophils Relative 64.0 44.0 - 74.0 % LAB HEMETOLOGY METHOD 05/03/2025 7:11 PM [facility] Lymphocytes Relative 26.4 20.0 - 48.0 % LAB HEMETOLOGY METHOD 05/03/2025 7:11 PM EDT [facility] Monocytes Relative 7.9 2.0 - 12.0 % LAB HEMETOLOGY METHOD [facility]/03[facility]2025 [facility] Eosinophils Relative 1.1 0.0 - 6.0 % LAB HEMETOLOGY METHOD 05/03/2025 7:11 PM EDT [facility] Basophils Relative 0.2 0.0 - 2.0 % LAB HEMETOLOGY METHOD 05/03/2025 7:11 PM EDT [facility] Neutrophils Absolute 5.15 1.80 - 7.80 K/mcL LAB HEMETOLOGY METHOD 05/03/2025 7:11 PM EDT [facility] Lymphocytes Absolute 2.13 1.00 - 3.20 K/mcL LAB HEMETOLOGY METHOD 05/03/2025 7:11 PM EDT [facility] Monocytes Absolute 0.64 0.00 - 0.80 K/mcL LAB HEMETOLOGY METHOD 05/03/2025 7:11 PM EDT [facility] Eosinophils Absolute 0.09 0.00 - 0.50 K/mcL LAB HEMETOLOGY METHOD 05/03/2025 7:11 PM EDT [facility] Basophils Absolute <0.03 0.00 - 0.20 K/mcL LAB HEMETOLOGY METHOD 05/03/2025 7[facility] Blood Venous blood specimen / Unknown Venipuncture / Unknown 05/03/2025 7:06 PM EDT 05/03/2025 7:08 PM EDT us Selvin Murphy MD LAB BLOOD ORDERABLES Final Res ult [facility] [address] [place] [address], * Magnesium (05/03/2025 7:06 PM EDT) Pathologist [facility] Magnesium 1.9 1.7 - 2.8 mg/dL LAB CHEMISTRY METHOD 05/03/2025 7:29 PM EDT [facility] Blood Venous blood specimen / Unknown Venipuncture / Unknown 05/03/2025 7:06 PM EDT 05/03/2025 7:08 PM EDT Selvin Murphy MD LAB BLOOD ORDERABLES Final Res ult [facility] [address] [place] [address], [place] [phone] * Lipase (05/03/2025 7:06 PM EDT) Pathologist [facility] Lipase 13 11 - 82 unit/L LAB CHEMISTRY METHOD 05/03/2025 7:29 PM EDT [facility] Blood Venous blood specimen / Unknown Venipuncture / Unknown 05/03/2025 7:06 PM EDT 05/03/2025 7:08 PM EDT Selvin Murphy MD LAB BLOOD ORDERABLES Final Res ult [facility] [address] [place] [address], [place] [phone] * (ABNORMAL) Comprehensive metabolic panel (05/03/2025 7:06 PM EDT) Pathologist [facility] Sodium 136 135 - 145 mmol/L LAB CHEMISTRY METHOD 05/03/2025 7:29 PM EDT [facility] Potassium 3.8 3.5 - 5.1 mmol/L LAB CHEMISTRY METHOD 05/03/2025 7:29 PM EDT [facility] Chloride 100 98 - 107 mmol/L LAB CHEMISTRY METHOD 05/03/2025 7:29 PM [facility] CO2 25 24 - 32 mmol/L LAB CHEMISTRY METHOD 05/03/2025 7:29 PM [facility] Anion Gap 11 5 - 14 LAB CHEMISTRY METHOD 05/03/2025 7:29 PM [facility] Glucose 109 70 - 199 mg/dL LAB CHEMISTRY METHOD 05/03/2025 7:29 PM [facility] BUN 16 7 - 17 mg/dL LAB CHEMISTRY METHOD 05/03/2025 7:29 PM [facility] Creatinine 0.59 0.50 - 1.00 mg/dL LAB CHEMISTRY METHOD 05/03/2025 7:29 PM [facility] eGFR 104 >=60 mL/min/1. 73m2 LAB CHEMISTRY METHOD 05/03/2025 7:29 PM [facility] Comment:Calculation based on the Chronic Kidney Disease Epidemiology Collaboration (CKD-EPI) equation refit without adjustment for race. BUN/Creatinine Ratio 27.1(H) 12.0 - 20.0 LAB CHEMISTRY METHOD 05/03/2025 7:29 PM [facility] Calcium 9.4 8.4 - 10.2 mg/dL LAB CHEMISTRY METHOD 05/03/2025 7:29 PM [facility] AST (SGOT) 22 5 - 40 unit/L LAB CHEMISTRY METHOD 05/03/2025 7:29 PM [facility] ALT (SGPT) 14 7 - 52 unit/L LAB CHEMISTRY METHOD 05/03/2025 7:29 PM [facility] Alkaline Phosphatase 55 34 - 104 unit/L LAB CHEMISTRY METHOD 05/03/2025 7:29 PM [facility] Total Protein 7.5 6.4 - 8.5 g/dL LAB CHEMISTRY METHOD 05/03/2025 7:29 PM EDT [facility] Albumin 4.3 3.5 - 5.0 g/dL LAB CHEMISTRY METHOD 05/03/2025 7:29 PM EDT [facility] Total Bilirubin 0.6 0.3 - 1.0 mg/dL LAB CHEMISTRY METHOD 05/03/2025 7:29 PM EDT [facility] Blood Venous blood specimen / Unknown Venipuncture / Unknown 05/03/2025 7:06 PM EDT 05/03/2025 7:08 PM EDT us Selvin Murphy MD LAB BLOOD ORDERABLES Final Res ult [facility] [address] [place] [address], [place] [phone] * ECG 12 lead (05/03/2025 6:58 PM EDT) Ventricular Rate ECG 122 BPM GEMUSE Atrial Rate 122 BPM GEMUSE P-R Interval 132 ms GEMUSE QRS Duration 88 ms GEMUSE Q-T Interval 330 ms GEMUSE QTc 470 ms GEMUSE P Wave [place] 51 degrees GEMUSE R [place] 49 degrees GEMUSE T [place] 31 degrees GEMUSE ECG Interpretation Sinus tachycardia Nonspecific ST abnormality Abnormal ECG No previous ECGs available Confirmed by Harman Meredith ([id number]) on 05/06/2025 10:57:40 AM GEMUSE 05/03/2025 6:58 PM EDT 05/06/2025 10:57 AM EDT us Selvin Murphy MD ECG ORDERABLES Final Result GEMUSE from Last 3 Months Insurance [facility] Care Teams Wood Grinder Relationship Specialty Start Date End Date Rosa Khalil PA [address] [place] [id number] PCP - General Physician Metal Weigher 05/03/25
== END 2025-07-30 11:41 | disposition home or self-care (01) ==
LOC: HO.HMCFM 11:17
PROVIDERS: PCP Physician Assistant; Visit Provider Physician Assistant
DX: I10 Essential (primary) hypertension (principal); R00.2 Palpitations; Z82.49 Family history of ischemic heart disease and other diseases of the circulatory system

== ENCOUNTER → 2025-07-30 11:17 | Outpatient (BNVA) | payer OTHER, SELFPAY | PROVIDERS: PCP Physician Assistant; Visit Provider Physician Assistant | DX: I10 Essential (primary) hypertension (principal); R00.2 Palpitations; Z82.49 Family history of ischemic heart disease and other diseases of the circulatory system | CPT/HCPCS: 99212 ==

== ENCOUNTER → 2025-08-04 08:00 | Outpatient (REF) | payer OTHER, SELFPAY ==
--- NOTE | 2025-08-04 08:05 | CA_ITS ---
Transthoracic Echocardiogram Patient (Last, First, Middle): Sergey Benavides, Gender: F Date of : 1965 Age: 60 Procedure Date: 08/04/2025 Procedure Type: Transthoracic Echocardiogram Location: OP Height: 167.64 cm Weight: 64.86 kg BSA: 1.73 m2 Heart Rate: bpm BP: 156 / 82 mmHg Research Executive: DENISE Referring MD: Rosa Khalil PA-C Symptoms: R03.0 - Elevated blood-pressure reading, without diagnosis of hypertension Study Quality: Adequate ECG Rhythm: Sinus Conclusions: - The left ventricular systolic function is normal. The calculated ejection fraction is 64% by biplane method. - No obvious valvular pathology seen on this study. Findings Left Ventricle Normal left ventricular cavity size. The left ventricular systolic function is normal. The calculated ejection fraction is 64% by biplane method. There is no evidence of regional wall motion abnormalities. Diastolic function is normal for age. There is mild septal asymmetric hypertrophy. Right Ventricle Normal right ventricular cavity size and systolic function. Atria The left atrium is mildly dilated. The right atrium is normal in size. Aortic Valve There is a normal trileaflet aortic valve. There is no aortic valve stenosis. There is no aortic valve regurgitation. Mitral Valve The mitral valve appears normal. There is no mitral valve regurgitation. There is no mitral valve stenosis. Pulmonic Valve The pulmonic valve is likely normal. Tricuspid Valve There is mild tricuspid valve regurgitation. There is no evidence of pulmonary hypertension. Great Vessels The asc aorta and aortic arch are normal in size. Venous The inferior vena cava is mildly dilated and collapses greater than 50% with inspiration. Pericardium/Pleural There is no evidence of pericardial effusion. Prior Study Comparison No prior study available for comparison. Recommendations, Care & Conclusions No obvious valvular pathology seen on this study. Measurements 2D Linear Measurements IVSd: 1.10 0.6-0.9/0.6-1.0 cm LVIDd: 4.09 3.9-5.3/4.2-5.9 cm LVIDd Index: 2.36 2.4-3.2/2.2-3.1 cm/m2 LVIDs: 2.50 2.0-3.6 cm LVPWd: 0.71 0.7-1.1 cm LA Diam: 3.60 2.7-3.8/3.0-4.0 cm LAIDs Index: 2.08 1.5-2.3 cm/m2 LV Mass: 142.55 67-162/88-224 g LV Mass Index: 82.40 43-95/49-115 g/m2 LVOT Diam: 2.00 3.0+(-)1.3 cm 2D Systolic Function EF 4C: 64.90 >55% EF 2C: 62.40 >55% EF BiP: 63.70 >55% Mitral Valve MV Pk E: 0.79 MV PK A: 0.84 MV Decel Time: 176.00 E/A: 0.90 E'Lateral: 7.40 E'Medial: 6.20 E/E' Med: 12.70 E/E' Lat: 10.60 PHT: 51.00 MVA PHT: 4.31 Decel Harper: 4.46 Aortic Valve AoV Pk Jong: 1.68 AoV Mn Jong: 1.12 AoV VTI: 0.35 AoV Pk Grad: 11.00 Aov Mn Grad: 6.00 GABRIEL Cont.VTI: 2.86 LVOT LVOT Pk Jong: 1.57 LVOT Mn Jong: 1.03 LVOT VTI: 0.32 LVOT Pk Grad: 10.00 LVOT Mn Grad: 5.00 LVOT Diam: 2.00 LVOT Area: 3.14 Diastolic Function MV Pk E: 0.79 MV Pk A: 0.84 E/A: 0.90 E'Medial: 6.20 E/E' Med: 12.70 E' Laterial: 7.40 E/E' Lat: 10.60 Right Ventricle TAPSE (mm): 23.80 TVS' Jong: 11.20 Tricuspid Valve TR Pk Jong: 2.38 TR Pk Grad: 23.00 RA Press: 8.00 RVSP: 31.00 Great Vessels Aorta Sinus of Valsalva: 3.57 2.0-3.5 cm Ao Asc: 3.30 2.1-3.4 cm Ao Arch: 3.30 Pulmonary Veins Pulm Vein S/D 1.40 Updated in Other Vendor System with Status of Final Tonio Boyd MD electronically signed on 08/04/2025 10:32:14 AM with status of Final
== END ==
LOC: HO.CARD 08:00
PROVIDERS: Visit Provider Physician Assistant
DX: R00.2 Palpitations (principal); R03.0 Elevated blood-pressure reading, without diagnosis of hypertension
CPT/HCPCS: 93306

== ENCOUNTER → 2025-08-04 08:05 | Outpatient (BNV) | payer OTHER, SELFPAY | PROVIDERS: Visit Provider Internal Medicine | DX: I42.2 Other hypertrophic cardiomyopathy (principal) | CPT/HCPCS: 93306 ==

== ENCOUNTER 2025-09-03 10:02 | Outpatient (REF) | payer OTHER, SELFPAY ==
--- NOTE | ~2025-09-03 | MM_ITS ---
EXAMINATION: DXA BONE DENSITY AXIAL HISTORY: N95.1 - Menopausal and female climacteric states TECHNIQUE: PiniOn Dual energy absorptiometry (DEXA) of the lumbar spine, total left hip, and femoral neck was performed. COMPARISON: There are no prior studies for comparison. FINDINGS: The bone mineral density of the lumbar spine is 1.281 g/cm2, corresponding to a T-score of 0.9, and a Z-score of 2.2. This is indicative of normal bone mineral density. The bone mineral density of the left total hip is 1.109 g/cm2, corresponding to a T-score of 0.8, and a Z-score of 1.8. This is indicative of normal bone mineral density. The bone mineral density of the left femoral neck is 1.025 g/cm2, corresponding to a T-score of -0.1, and a Z-score of 1.2. This is indicative of normal bone mineral density. FRACTURE RISK: The FRAX index suggests a risk of major osteoporotic fracture of 5.8%, and of hip fracture 0.2%. MM/XR DEXA axial skeleton IMPRESSION: Based on bone mineral density, and according to World Health Organization (WHO) criteria, the diagnosis is consistent with normal bone mineral density. Statistically, 68% of repeat scans fall within 1 SD (+/- 0.010 g/cm2 for AP spine L1-L4) and 1 SD (+/- 0.012 g/cm2 for femur total) FRAX is a trademark of the [employer]'s [place] [employer] Met[employer] Bone Disease, a World Health Organization (WHO) Collaborating Center. Electronically signed by: Colin Burton MD 09/03/2025 10:43 AM [facility]
--- OUTSIDE RECORDS SUMMARY | 2025-09-03 12:15 | XMS_ITS ---
Author Name [facility] Organization Unknown Results Test Name/Text Value Interpretation Date Range Source TSH SerPl DL<=0.005 mIU/L-aCnc 2.4 mcIU/mL 05/04/2025 0.45 - 5.33 [facility] Troponin I SerPl HS-mCnc 3.0 ng/L 05/04/2025 0 - 14 [facility] D Dimer PPP DDU-mCnc <150.0 ng/mL DDU 05/04/2025 - 231 [facility] Troponin I SerPl HS-mCnc 3.0 ng/L 05/03/2025 0 - 14 [facility] Albumin SerPl-mCnc 4.3 g/dL 05/03/2025 3.5 - 5 [facility] BUN SerPl-mCnc 16.0 mg/dL 05/03/2025 7 - 17 [facility] AST SerPl-cCnc 22.0 unit/L 05/03/2025 5 - 40 [facility] CO2 SerPl-sCnc 25.0 mmol/L 05/03/2025 24 - 32 [facility] Anion Gap SerPl Calc-sCnc 11.0 05/03/2025 5 - 14 [facility] Prot SerPl-mCnc 7.5 g/dL 05/03/2025 6.4 - 8.5 [facility] Glucose SerPl-mCnc 109.0 mg/dL 05/03/2025 70 - 199 [facility] Bilirub SerPl-mCnc 0.6 mg/dL 05/03/2025 0.3 - 1 [facility] Calcium SerPl-mCnc 9.4 mg/dL 05/03/2025 8.4 - 10.2 [facility] ALP SerPl-cCnc 55.0 unit/L 05/03/2025 34 - 104 [facility] ALT SerPl-cCnc 14.0 unit/L 05/03/2025 7 - 52 [facility] Potassium SerPl-sCnc 3.8 mmol/L 05/03/2025 3.5 - 5 .1 [facility] Sodium SerPl-sCnc 136.0 mmol/L 05/03/2025 135 - 14 5 [facility] Creat SerPl-mCnc 0.59 mg/dL 05/03/2025 0.5 - 1 C [facility] Chloride SerPl-sCnc 100.0 mmol/L 05/03/2025 98 - 1 07 [facility] BUN/Creat SerPl 27.1 Above high normal 05/03/2025 12 - 20 [facility] eGFRcr SerPlBld CKD-EPI 2020 104.0 mL/min/1.73m2 05/03/2025 - [facility] Lipase SerPl-cCnc 13.0 unit/L 05/03/2025 11 - 82 [facility] Magnesium SerPl-mCnc 1.9 mg/dL 05/03/2025 1.7 - 2. 8 [facility] WBC # Bld Auto 8.1 K/mcL 05/03/2025 4 - 10.5 [facility] Neutrophils # Bld Auto 5.15 K/mcL 05/03/2025 1.8 - 7.8 [facility] Basophils NFr Bld Auto 0.2 % 05/03/2025 0 - 2 [facility] Lymphocytes # Bld Auto 2.13 K/mcL 05/03/2025 1 - 3.2 [facility] MCHC RBC Auto-EntMCnc 33.9 g/dL 05/03/2025 32 - 36 [facility] Eosinophil NFr Bld Auto 1.1 % 05/03/2025 0 - 6 [facility] Monocytes # Bld Auto 0.64 K/mcL 05/03/2025 0 - 0.8 [facility] Basophils # Bld Auto <0.03 K/mcL 05/03/2025 0 - 0. 2 [facility] Hct VFr Bld Auto 38.7 % 05/03/2025 37 - 47 [facility] Lymphocytes NFr Bld Auto 26.4 % 05/03/2025 20 - 48 [facility] RBC Auto 89.4 FL 05/03/2025 78 - 100 [facility] RBC # Bld Auto 4.33 M/mcL 05/03/2025 4.2 - 5.4 [facility] PMV Bld Auto 8.7 FL 05/03/2025 7.4 - 11.4 [facility] MCH RBC Qn Auto 30.3 pcg 05/03/2025 25 - 33 [facility] Platelet # Bld Auto 271.0 K/mcL 05/03/2025 150 - 4 50 [facility] Neutrophils NFr Bld Auto 64.0 % 05/03/2025 44 - 74 [facility] RDW RBC Auto 12.6 % 05/03/2025 12.1 - 16.2 [facility] Monocytes NFr Bld Auto 7.9 % 05/03/2025 2 - 12 [facility] Eosinophil # Bld Auto 0.09 K/mcL 05/03/2025 0 - 0. 5 [facility] Hgb Bld-mCnc 13.1 g/dL 05/03/2025 12.5 - 16 [facility] History of Medication Use Medication Directions Dispensed Refills Start Date End Date Stat sodium chloride 0.9 % bolus 1,000 mL 1,000 mL, intravenous, at 1,000 mL/hr, Administer over 1 Hours, Once, On 05/03/25 at 2021, For 1 dose 05/04/2025 05/04/2025 completed LORazepam (ATIVAN) tablet 1 mg 1 mg, oral, Once, On 05/03/25 at 2017, For 1 dose 05/03/2025 active buprenorphine-nalo xone 8.6-2.1 mg tablet, sublingual Place 0.5 tablets under the tongue 1 (one) time each day. After the medication is completely dissolved, take a large sip of water, swish it around teeth and gums, and swallow. Wait at least 1 hour before brushing teeth to avoid damage to your teeth. Max Daily Amount: 0.5 tablets active Allergies Allergen Reaction Severity Comment Documented Date Source Statu s [facility]03[facility] Problems Problem Status Onset Date Problem Type Date of Resolution Source Chest pain, unspecified type active EncounterDiagnosisAct [facility] Hypertension, unspecified type active EncounterDiagnosisAct [facility] Encounters Encounter Type Encounter Reason Primary Diagnosis Location Date Emergency chest pain Chest pain, unspecified Dorian qiu 05/03/2025 Care Team Organization Name Specialty Phone Email Start Date End Da te [facility] 05/10/2025 [facility] 05/04/2025 [facility] 05/03/2025
--- OUTSIDE RECORDS SUMMARY | 2025-09-03 12:15 | XMS_ITS | Clinical Summary ---
Author Organization [facility] Address [address] [place] [address] Phone Care Team Providers Care Trade Embalmer Name Role Phone Rosa Khalil Primary Care Provider [phone] Allergies Active Allergy Reactions Criticality Noted Date [...] Active Active Problems No known active problems Social History Tobacco Use Types Packs/Day Years [...] on file Sexual Orientation Not on file Last Filed Vital Signs Vital Sign Reading [...] (1 of 2) 2015 Depression Screening 09/18/2024 HIV Screening 05/03/2025 Hepatitis C Screening 05/03/2025 Social Influencers of Health Screening 05/03/2025 COVID-19 Vaccine (1 - 2024-2 6 season) 2025 Influenza Vaccine (#1) 2025 RSV Immunization Adult Patie nts (1 - [...] on patient's age to complete this topic Insurance [facility] [place] [address] Care Teams Trade Embalmer Relationship Specialty Start Date End Date Rosa Khalil [place] [facility] [address] [place] [address] PCP - General Physician Digital Marketing Lead 05/03/25
== END 2025-09-03 10:03 | disposition home or self-care (01) ==
LOC: HO.MAMMO 10:02
PROVIDERS: Visit Provider Physician Assistant
DX: Z12.31 Encounter for screening mammogram for malignant neoplasm of breast (principal); N95.1 Menopausal and female climacteric states
CPT/HCPCS: 77063; 77067; 77080

== ENCOUNTER → 2025-09-03 10:30 | Outpatient (BNV) | payer OTHER, SELFPAY | PROVIDERS: Visit Provider Radiology Diagnostic Radiology | DX: E28.39 Other primary ovarian failure (principal) | CPT/HCPCS: 77080 ==